=== PATIENT | female | born 1970 ===

== ENCOUNTER 2017-03-03 09:23 | Day surgery (SDC) | payer OTHER ==
--- NOTE | 2017-03-03 11:32 | CP.SDSHP ---
Same Day Surgery H & P - History Proposed Procedure: EGD Pre-Op Diagnosis: SEE NOTES - Previous Medical/Surgical History Endocrine/Metabolic: Thyroid Disease Neuro: Backaches Pain: 4.Moderate Pain - Allergies Allergies: Allergies No Known Allergies Allergy (Verified 03/03/17 09:51) - Physical Exam General Appearance: N Vital Signs: Vital Signs 03/03/17 10:30 Temperature 97.6 F Pulse Rate 76 Respiratory 20 Rate Blood Pressure 126/83 O2 Sat by Pulse 100 Oximetry Mental Status: Alert & Oriented x3 Neuro: WNL Heart: WNL Lungs: WNL - {Optional Preform as Required} Breast: WNL Abdomen: Other Rectal: Other Integument: WNL : WNL Ortho: Other ENT: WNL - Impression Pt. Evaluated Today:Candidate for Anesthesia & Procedure: Yes - Date & Time Time: 11:31 Short Stay Discharge - Short Stay Discharge Admitting Diagnosis/Reason for Visit: DYSPEPSIA Disposition: HOME/ ROUTINE
[2017-03-03] MEDS ORDERED: Propofol 10 mg/ml Inj (20 ML) ONE (11:36)
[2017-03-03] MEDS ORDERED: Lactated Ringer's 500 ML IV ONE ×3 (11:37)
[2017-03-03 12:07] VITALS: TEMP 98.4
[2017-03-03] MEDS ORDERED: Pantoprazole 40 mg EC Tab PO ONE (12:10)
[2017-03-03] MEDS ORDERED: Belladonna-Phenobarbital PO ONE (12:10)
[2017-03-03 13:27] VITALS: O2SAT 100
[2017-03-03 13:28] VITALS: BP 120/70; PULSE 60; RESP 20
== END 2017-03-03 15:20 | disposition home or self-care (01) ==
LOC: C.ENDO 09:23
PROVIDERS: ATTEND Specialist
DX: K29.50 Unspecified chronic gastritis without bleeding (principal); K29.80 Duodenitis without bleeding; K44.9 Diaphragmatic hernia without obstruction or gangrene; K20.9 Esophagitis, unspecified
CPT/HCPCS: 43239; 84703; 88305; 88342; J2001; J2704; J3010; J7120

== ENCOUNTER 2017-03-10 06:43 | Day surgery (SDC) | payer OTHER ==
[2017-03-10 06:54] VITALS: BMI 26.2
[2017-03-10] MEDS ORDERED: Propofol 10 mg/ml Inj (20 ML) ONE ×2 (07:58→08:11)
--- NOTE | 2017-03-10 08:04 | CP.SDSHP ---
Same Day Surgery H & P - History Proposed Procedure: COLONSCOPY Pre-Op Diagnosis: SEE NOTES - Previous Medical/Surgical History Neuro: Other Misc: Other Pain: 4.Moderate Pain - Allergies Allergies: Allergies No Known Allergies Allergy (Verified 03/03/17 09:51) - Physical Exam General Appearance: N Vital Signs: Vital Signs 03/10/17 06:52 Temperature 97 F L Pulse Rate 77 Respiratory 19 Rate Blood Pressure 106/73 O2 Sat by Pulse 97 Oximetry Mental Status: Alert & Oriented x3 Neuro: WNL Heart: WNL Lungs: WNL GI: Other - {Optional Preform as Required} Breast: WNL Abdomen: Other Rectal: Other Integument: WNL : WNL Ortho: Other ENT: WNL - Impression Pt. Evaluated Today:Candidate for Anesthesia & Procedure: Yes - Date & Time Time: 08:04 Short Stay Discharge - Short Stay Discharge Admitting Diagnosis/Reason for Visit: DIARRHEA Disposition: HOME/ ROUTINE
[2017-03-10 08:34] VITALS: TEMP 96.8
[2017-03-10] MEDS ORDERED: Belladonna-Phenobarbital PO ONE (08:45)
[2017-03-10 10:28] VITALS: O2SAT 99
[2017-03-10 10:31] VITALS: BP 107/81; PULSE 62; RESP 18
== END 2017-03-10 09:23 | disposition home or self-care (01) ==
LOC: C.ENDO 06:43
PROVIDERS: ATTEND Specialist
DX: R19.7 Diarrhea, unspecified (principal); K58.0 Irritable bowel syndrome with diarrhea; K64.8 Other hemorrhoids
CPT/HCPCS: 45380; 84703; 88305; J2704

== ENCOUNTER 2017-04-22 06:49 | Inpatient (IN) | payer OTHER ==
[2017-04-08 10:09] VITALS: BMI 26.5
[2017-04-22] MEDS ORDERED: Remifentanil 1 mg/3 ml Vial IV ONE (07:48)
[2017-04-22] MEDS ORDERED: Propofol 10 mg/ml 1,000 MG/100 ML VIAL ONE ×2 (07:48)
[2017-04-22] MEDS ORDERED: Thrombin Topical 5,000 IU Spray Kit ONE (07:51)
[2017-04-22] MEDS ORDERED: Bupivacaine-Epi 0.25%-1:200,000 PF Inj ONE (07:51)
[2017-04-22] MEDS ORDERED: Lidocaine 1% Inj (20ml) ONE (07:51)
[2017-04-22] MEDS ORDERED: Midazolam 2 MG/2 ML VIAL ONE (07:51)
[2017-04-22] MEDS ORDERED: Absorbable Gelatin Sponge Size 100 ONE (07:51)
[2017-04-22] MEDS ORDERED: ceFAZolin IV 2 gm in Dextrose 1 GM/50 ML BAG IVPB ONE (07:52)
[2017-04-22] MEDS ORDERED: Lactated Ringer's 1,000 ML IV ONE ×3 (07:55→12:53)
[2017-04-22] MEDS ORDERED: ceFAZolin IV 1 gm in Dextrose 2 GM/100 ML BAG IVPB ONE (12:31)
[2017-04-22] MEDS ORDERED: Neostigmine Methylsulfate 3mg/3ml Syringe IV ONE (13:05)
--- NOTE | 2017-04-22 13:24 | PCM.SURG1 ---
Surgeon's Initial Post Op Note - Surgeon's Notes Surgeon: [employer]: Gonzalo PGY3, Nate LAWLER Type of Anesthesia: General Endo, Local Pre-Operative Diagnosis: Graves disease, R neck scar Operative Findings: large hypervascular thyroid Post-Operative Diagnosis: Same Operation Performed: Total thyroidectomy and revision of R neck scar Specimen/Specimens Removed: thyroid, scar Estimated Blood Loss: EBL {In ML}: 50 Blood Products Given: N/A Drains Used: Abraham Post-Op Condition: Good Date of Surgery/Procedure: 04/22/17 Time of Surgery/Procedure: 13:23
[2017-04-22] MEDS: HYDROmorphone 0.5 mg/0.5 ml ISec IVP PRN ×6 (13:40→21:35)
[2017-04-22] MEDS ORDERED: ACETAMINOPHEN IV ONE (14:15)
[2017-04-22] MEDS ORDERED: Acetaminophen IV 1,000 MG in Premixed IV 1 EA IV STA (14:16)
[2017-04-22] MEDS: Sodium Chloride 0.9% 1,000 ML IV SCH ×2 (15:40→16:40)
[2017-04-22] MEDS: Oxycodone/Acetaminophen 5/325 mg Tab PO PRN (19:32)
[2017-04-22] MEDS: Benzocaine/Menthol (Cepacol) Lozenge MT PRN (21:35)
[2017-04-23] MEDS: Oxycodone/Acetaminophen 5/325 mg Tab PO PRN ×4 (00:10→17:13)
[2017-04-23] MEDS: HYDROmorphone 0.5 mg/0.5 ml ISec IVP PRN ×4 (01:40→13:42)
[2017-04-23] MEDS: Benzocaine/Menthol (Cepacol) Lozenge MT PRN ×2 (04:36→09:57)
[2017-04-23] MEDS: Sodium Chloride 0.9% 1,000 ML IV SCH (05:30)
[2017-04-23 08:16] LABS: HEMATOCRIT 31.8 % (34.0-47.0); MEAN CELL VOLUME 100.1 fL (81.0-99.0); MEAN CORPUSCULAR HEMOGLOBIN 35.2 pg (27.0-31.0); MEAN CORPUSCULAR HGB CONC 35.1 g/dL (33.0-37.0); MEAN PLATELET VOLUME 7.2 fL (7.2-11.7); RED CELL DISTRIBUTION WIDTH 12.4 % (11.5-14.5); WHITE BLOOD COUNT 6.4 K/uL (4.8-10.8)
--- NOTE | 2017-04-23 12:26 | CP.PCM.PN ---
<Quentin Gama - Last Filed: 04/23/17 12:23> Subjective - Date & Time of Evaluation Date of Evaluation: 04/23/17 Time of Evaluation: 12:23 - Subjective Subjective: General Surgery Note for Dr. Shabazz Patient seen and examined today. Drain fell out overnight. Patient s/p total thyroidectomy POD #1. Patient reports some pain at incision site but controlled with meds. Patient has no other complaints. She is tolerating diet. Objective - Vital Signs/Intake and Output Vital Signs (last 24 hours): Temp Pulse Resp BP Pulse Ox 98.2 F 64 17 138/92 H 99 04/23/17 07:00 04/23/17 07:00 04/23/17 07:00 04/23/17 07:00 04/23/17 07:00 Intake and Output: 04/23/17 04/23/17 06:59 18:59 Output Total 6 Balance -6 - Medications Medications: Current Medications Benzocaine/Menthol (Cepacol Sore Throat) 1 sophia MT PRN PRN PRN Reason: Sore Throat Last Admin: 04/23/17 09:57 Dose: 1 sophia Hydromorphone HCl (Dilaudid) 0.5 mg IVP Q4H PRN PRN Reason: Pain, severe (8-10) Last Admin: 04/23/17 09:40 Dose: 0.5 mg Sodium Chloride (Sodium Chloride 0.9%) 1,000 mls @ 75 mls/hr IV .[id number] ALEXX Last Admin: 04/23/17 05:30 Dose: 75 mls/hr Ondansetron HCl (Zofran Inj) 4 mg IVP Q4 PRN PRN Reason: Nausea/Vomiting Oxycodone/Acetaminophen (Percocet 5/325 Mg Tab) 1 tab PO Q4H PRN PRN Reason: Pain, moderate (4-7) Stop: 04/25/17 13:29 Last Admin: 04/23/17 12:10 Dose: 1 tab - Labs Labs: 04/23/17 08:07 - Head Exam Head Exam: ATRAUMATIC, NORMOCEPHALIC - Eye Exam Eye Exam: Normal appearance - ENT Exam ENT Exam: Mucous Membranes Moist - Neck Exam Additional comments: dressing on anterior neck - Respiratory Exam Respiratory Exam: NORMAL BREATHING PATTERN - Cardiovascular Exam Cardiovascular Exam: REGULAR RHYTHM - GI/Abdominal Exam GI & Abdominal Exam: Soft. absent: Tenderness - Extremities Exam Extremities Exam: Normal Capillary Refill - Neurological Exam Neurological Exam: Alert, Awake, CN II-XII Intact, Oriented x3 - Psychiatric Exam Psychiatric exam: Normal Affect, Normal Mood - Skin Skin Exam: Dry, Normal Color, Warm Assessment and Plan - Assessment and Plan (Free Text) Plan: 47 F s/p total thyroidectomy POD#1 for Graves disease -OOB, Ambulation, and IS -Analgesics PRN -Continue IV fluids -Will DW DR. Mele Gama PGY1 <Don Shabazz - Last Filed: 04/23/17 21:13> Objective - Vital Signs/Intake and Output Vital Signs (last 24 hours): Temp Pulse Resp BP Pulse Ox 98.2 F 78 20 138/90 96 04/23/17 17:18 04/23/17 17:18 04/23/17 17:18 04/23/17 17:18 04/23/17 17:18 Intake and Output: 04/23/17 04/24/17 18:59 06:59 Intake Total 280 Balance 280 - Medications Medications: Current Medications Benzocaine/Menthol (Cepacol Sore Throat) 1 sophia MT PRN PRN PRN Reason: Sore Throat Last Admin: 04/23/17 09:57 Dose: 1 sophia Calcium Gluconate (Calcium Gluconate) 500 mg PO DAILY ALEXX Hydromorphone HCl (Dilaudid) 0.5 mg IVP Q4H PRN PRN Reason: Pain, severe (8-10) Last Admin: 04/23/17 13:42 Dose: 0.5 mg Ondansetron HCl (Zofran Inj) 4 mg IVP Q4 PRN PRN Reason: Nausea/Vomiting Oxycodone/Acetaminophen (Percocet 5/325 Mg Tab) 1 tab PO Q4H PRN PRN Reason: Pain, moderate (4-7) Stop: 04/25/17 13:29 Last Admin: 04/23/17 17:13 Dose: 1 tab - Labs Labs: 04/23/17 08:07 04/23/17 14:45 Attending/Attestation - Attestation I have personally seen and examined this patient.: Yes I have fully participated in the care of the patient.: Yes I have reviewed all pertinent clinical information, including history, physical exam and plan: Yes Notes (Text): 04/23/17 21:12 Pt was seen and examined at bedside Agree with above note and assessment Drain minimal, Drain fell out today morning Calciums supplement PO analgesics Repeat Calcium in am Plan d.w pt in detail
[2017-04-23 15:05] LABS: CHLORIDE 100 mmol/L (98-107); SODIUM 137 mmol/L (132-148)
[2017-04-23 15:07] LABS: ALB/GLOB RATIO 1.1 (1.0-2.1); ALKALINE PHOSPHATASE 75 U/L (38-126); AST/SGOT 28 U/L (14-36); BILIRUBIN,TOTAL 0.9 mg/dL (0.2-1.3); CARBON DIOXIDE 26 mmol/L (22-30); GFR AFRICAN-AMERICAN > 60; TOTAL PROTEIN 8.2 g/dL (6.3-8.3)
[2017-04-23 15:08] LABS: ALT/SGPT 33 U/L (9-52); BLOOD UREA NITROGEN 3 mg/dL (7-17); CALCIUM 6.4 mg/dl (8.6-10.4); GLUCOSE,RANDOM 94 mg/dL (65-105); MAGNESIUM 1.5 mg/dL (1.6-2.3)
[2017-04-23 15:10] LABS: POTASSIUM 3.3 mmol/L (3.6-5.2)
[2017-04-23] MEDS ORDERED: Calcium Gluconate 4.65 mEq/10 ml Inj IVP ONE (17:30)
[2017-04-24] MEDS: Oxycodone/Acetaminophen 5/325 mg Tab PO PRN ×3 (03:04→11:31)
--- NOTE | 2017-04-24 03:19 | OP ---
PROCEDURE DATE: 04/22/2017 PREOPERATIVE DIAGNOSES: 1. Graves' disease with controlled thyrotoxicosis. 2. Thyromegaly. 3. Old neck scar. POSTOPERATIVE DIAGNOSES: 1. Graves' disease with controlled thyrotoxicosis. 2. Thyromegaly. 3. Old neck scar. PROCEDURES: 1. Total thyroidectomy. 2. Intraoperative nerve monitoring. 3. Revision of right lateral neck scar. SURGEON: Dr. Shabazz. DIRECTOR OF CONSULTING SERVICES: Mahendra Villafuerte and MELLISSA Desouza. TYPE OF ANESTHESIA: General endotracheal tube anesthesia. ESTIMATED BLOOD LOSS: Around 50 mL. DRAINS: 15-[place] blood drain was placed. COMPLICATIONS: None. PATHOLOGY: 1. Thyroid was sent to the pathology. 2. Revised scar of the right lateral neck. INTRAOPERATIVE FINDINGS: The patient had thyromegaly and intraoperative bilateral recurrent laryngeal nerve was intact and confirmed with nerve monitoring. DESCRIPTION OF PROCEDURE: On intraoperative steps, this 47-year-old female who had thyrotoxicosis and after controlling thyrotoxicosis medically, the patient was consented for total thyroidectomy for Graves' disease and the patient was also consented for the revision of the right lateral neck scar. The patient was brought to the OR, placed supine upon operating table. After induction of the anesthesia, neck and upper chest was prepped and draped in the usual sterile fashion. The skin crease incision was made two finger breadth above the sternal notch from one side of SCM to other side side and after incising skin, subcutaneous tissue, and platysma, upper and lower flap was created and the strap muscles were divided in the midline from the cricothyroid up to the sternum and both strap muscles were divided and thyroid on the left side was visualized. The upper pole of the thyroid was ligated in three different pedicles and now laterally the middle thyroid vein was also identified and ligated and the thyroid was mobilized medially and inferior thyroid artery was identified. The superior parathyroid was dissected free and now the inferior parathyroid was also identified and it was dissected free. The recurrent laryngeal nerve on the left side was identified and tested with the monitor and now the inferior thyroid vein was ligated and inferior thyroid artery was also ligated and recurrent laryngeal nerve was dissected free from the thyroid and the dissection was carried down up to the tubercle of Zuckerkandl and thyroid was dissected free from the underlying trachea and afterward, the similar dissection was done on the right side and the superior thyroid pedicle was ligated with three different pedicles and the middle thyroid vein was also ligated and the thyroid was mobilized medially. The inferior thyroid artery as well as inferior thyroid vein were identified and the recurrent laryngeal nerve was also identified and the middle thyroid artery and middle thyroid vein were ligated and divided and recurrent laryngeal nerve was dissected free up to the tubercle of Zuckerkandl and the thyroid was dissected free from the underlying trachea. The right superior and inferior parathyroid was also identified and it was and after that the pyramidal lobe was also dissected and it was sent to the table for the pathology. After completion of the dissection, both nerves were tested and it were intact and there was a good action potential identified and after a proper hemostasis, the strap muscles were sutured back with 0 Vicryl interrupted sutures and platysma with 2-0 Vicryl, skin with 4-0 Monocryl, and a drain was placed. Now, the right lateral neck scar was revised and the scar was sent to the table for the pathology and the wound was closed in two layers, the subcutaneous with 2-0 Vicryl, skin with 4-0 Vicryl, and from the similar incision the drain was taken out and dry sterile dressing was applied. Postoperatively, the patient had a normal voice. The patient tolerated the procedure well. Count of the instruments and gauze was correct. There was no apparent complication. Don Shabazz MD MAS[facility]
[2017-04-24 08:35] VITALS: BP 143/99; PULSE 85; RESP 18; TEMP 98.2; O2SAT 96
[2017-04-24 10:11] LABS: MEAN CELL VOLUME 99.7 fL (81.0-99.0); MEAN CORPUSCULAR HEMOGLOBIN 34.7 pg (27.0-31.0); MEAN CORPUSCULAR HGB CONC 34.8 g/dL (33.0-37.0); MEAN PLATELET VOLUME 7.1 fL (7.2-11.7); RED CELL DISTRIBUTION WIDTH 12.1 % (11.5-14.5); WHITE BLOOD COUNT 7.2 K/uL (4.8-10.8)
[2017-04-24 10:22] LABS: CHLORIDE 99 mmol/L (98-107); POTASSIUM 3.3 mmol/L (3.6-5.2); SODIUM 137 mmol/L (132-148)
[2017-04-24 10:25] LABS: BLOOD UREA NITROGEN 6 mg/dL (7-17); CALCIUM 6.8 mg/dl (8.6-10.4); CARBON DIOXIDE 24 mmol/L (22-30); GFR AFRICAN-AMERICAN > 60; GLUCOSE,RANDOM 93 mg/dL (65-105)
[2017-04-24] MEDS ORDERED: Potassium Chloride 20 mEq ER Tab PO ONE (11:26)
[2017-04-24] MEDS ORDERED: Magnesium Sulfate 1 gm in D5W 1 GM/100 ML BAG IVPB ONE (12:00)
--- NOTE | 2017-04-24 13:49 | CP.PCM.DIS ---
Provider - Provider Date of Admission: 04/22/17 13:25 Attending physician: Don Shabazz MD Time Spent in preparation of Discharge (in minutes): 30 Diagnosis - Discharge Diagnosis (1) Graves disease Status: Acute (2) S/P thyroidectomy Status: Acute Hospital Course - Lab Results Lab Results: Most Recent Lab Values WBC 7.2 K/uL (4.8-10.8) 04/24/17 09:57 RBC 3.51 Mil/uL (3.80-5.20) L 04/24/17 09:57 Hgb 12.2 g/dL (11.0-16.0) 04/24/17 09:57 Hct 35.0 % (34.0-47.0) 04/24/17 09:57 MCV 99.7 fL (81.0-99.0) H 04/24/17 09:57 MCH 34.7 pg (27.0-31.0) H 04/24/17 09:57 MCHC 34.8 g/dL (33.0-37.0) 04/24/17 09:57 RDW 12.1 % (11.5-14.5) 04/24/17 09:57 Plt Count 311 K/uL (130-400) 04/24/17 09:57 MPV 7.1 fL (7.2-11.7) L 04/24/17 09:57 Sodium 137 mmol/L (132-148) 04/24/17 09:57 Potassium 3.3 mmol/L (3.6-5.2) L 04/24/17 09:57 Chloride 99 mmol/L (98-107) 04/24/17 09:57 Carbon Dioxide 24 mmol/L (22-30) 04/24/17 09:57 Anion Gap 17 (10-20) 04/24/17 09:57 BUN 6 mg/dL (7-17) L 04/24/17 09:57 Creatinine 0.5 mg/dL (0.7-1.2) L 04/24/17 09:57 Est GFR ( Amer) > 60 04/24/17 09:57 Est GFR (Non-Af Amer) > 60 04/24/17 09:57 Random Glucose 93 mg/dL (65-105) 04/24/17 09:57 Calcium 6.8 mg/dl (8.6-10.4) L 04/24/17 09:57 Magnesium 1.5 mg/dL (1.6-2.3) L 04/23/17 14:45 Total Bilirubin 0.9 mg/dL (0.2-1.3) 04/23/17 14:45 AST 28 U/L (14-36) 04/23/17 14:45 ALT 33 U/L (9-52) 04/23/17 14:45 Alkaline Phosphatase 75 U/L (38-126) 04/23/17 14:45 Total Protein 8.2 g/dL (6.3-8.3) 04/23/17 14:45 Albumin 4.3 g/dL (3.5-5.0) 04/23/17 14:45 Globulin 3.9 gm/dL (2.2-3.9) 04/23/17 14:45 Albumin/Globulin Ratio 1.1 (1.0-2.1) 04/23/17 14:45 - Hospital Course Hospital Course: 47F w. hx of Grave's diseases presented to hospital on 04/22 for total thyroidectomy. Post-operatively she did experience some electrolyte abnormalities which were corrected as needed. Otherwise she did well and has no complaints and is clear for D/C. - Date & Time of H&P Date of H&P: 04/22/17 Discharge Exam - Head Exam Head Exam: ATRAUMATIC, NORMOCEPHALIC - Eye Exam Eye Exam: EOMI - ENT Exam ENT Exam: Mucous Membranes Moist - Neck Exam Neck exam: Full Rom Additional comments: incision C/D/I - Respiratory Exam Respiratory Exam: NORMAL BREATHING PATTERN. absent: Accessory Muscle Use, Respiratory Distress - GI/Abdominal Exam GI & Abdominal Exam: Soft. absent: Distended, Firm, Guarding, Rigid - Neurological Exam Neurological exam: Alert, Oriented x3 - Psychiatric Exam Psychiatric exam: Normal Affect, Normal Mood - Skin Skin Exam: Dry, Warm Discharge Plan - Discharge Medications Prescriptions: Calcium Carbonate/Vitamin D3 [Calcium 500-Vit D3 600 Caplet] 1 each PO TID #60 tablet - Follow Up Plan Condition: GOOD Disposition: HOME/ ROUTINE Patient education suggested?: Yes Instructions: Calcium Supplement (By mouth), Pain Management After Surgery (DC) , Total Thyroidectomy (DC) Additional Instructions: See Dr. Shabazz in office on Thursday. Pt may sponge bathe but do not shower Do not soak incisions - no pools, tubs, baths Pt may take over the counter Tylenol/Advil/Motrin for pain Take all medication as prescribed Stop taking Methimazole Return to the ED if difficulty breathing, hoarseness, fever >100.4, pain, redness, swelling of incision Referrals: Don Shabazz MD [Staff Provider] -
[2017-04-24] MEDS: Benzocaine/Menthol (Cepacol) Lozenge MT PRN (14:34)
== END 2017-04-24 15:30 | disposition home or self-care (01) | DRG 287 ==
LOC: C.SDS 06:49 → C.9S 13:25 → C.6T 17:47
PROVIDERS: ADMIT Surgery Surgical Critical Care; ATTEND Surgery Surgical Critical Care
PROC: 0GTK0ZZ Resection of Thyroid Gland, Open Approach (ICD-10-PCS; principal; 2017-04-23)
PROC: 0HB4XZZ Excision of Neck Skin, External Approach (ICD-10-PCS; 2017-04-23)
DX: E05.00 Thyrotoxicosis with diffuse goiter without thyrotoxic crisis or storm (principal); E01.0 Iodine-deficiency related diffuse (endemic) goiter; L90.5 Scar conditions and fibrosis of skin

== ENCOUNTER 2018-01-17 16:02 | Inpatient (IN) | payer OTHER ==
[2018-01-17 16:03] VITALS: BMI 26.5
--- NOTE | 2018-01-17 16:50 | C.PDOC ---
History Of Present Illness 47 year old female with history of thyroidectomy presents to the ED complaining of syncope, palpitations, and subjective fever for one week. Patient attributes the symptoms to her recent thyroidectomy. She denies any cough, pain, or any other medical complaints. Time Seen by Provider: 01/17/18 16:08 Chief Complaint (Nursing): Dizziness/Lightheaded History Per: Patient History/Exam Limitations: no limitations Onset/Duration Of Symptoms: Days Current Symptoms Are (Timing): Still Present Past Medical History Reviewed: Historical Data, Nursing Documentation, Vital Signs Vital Signs: Last Vital Signs Temp 98.1 F 01/18/18 16:11 Pulse 69 01/18/18 20:29 Resp 20 01/18/18 16:11 BP 119/84 01/18/18 16:11 Pulse Ox 97 01/18/18 16:11 - Medical History PMH: Anxiety, Gall Bladder Disease, Graves' Disease, Hyperthyroidism Denies: Chronic Kidney Disease Surgical History: Back Surgery, Cholecystectomy, Endoscopy Other Surgeries: thyroidectomy - [facility] Procedures EXCISION OF NECK SKIN, EXTERNAL APPROACH (04/22/17) RESECTION OF THYROID GLAND, OPEN APPROACH (04/22/17) Family History: States: No Known Family Hx - Social History Hx Alcohol Use: Yes Hx Substance Use: No - Immunization History Hx Tetanus Toxoid Vaccination: No Hx Influenza Vaccination: No Hx Pneumococcal Vaccination: No Review Of Systems Except As Marked, All Systems Reviewed And Found Negative. Constitutional: Positive for: Fever Cardiovascular: Positive for: Palpitations Respiratory: Negative for: Cough, Shortness of Breath Neurological: Positive for: Dizziness Physical Exam - Physical Exam Appears: Non-toxic, Other (Anxious appearance ) Skin: Normal Color, Warm, Dry Head: Atraumatic, Normacephalic Eye(s): bilateral: Normal Inspection Oral Mucosa: Moist Neck: Normal ROM Chest: Symmetrical Cardiovascular: Rhythm Regular, No Murmur Respiratory: Normal Breath Sounds, No Rales, No Rhonchi, No Wheezing Extremity: Normal ROM Neurological/Psych: Oriented x3, Normal Speech Gait: Steady ED Course And Treatment - Laboratory Results Result Diagrams: 01/18/18 02:27 01/18/18 02:27 ECG: Interpreted By Me, Viewed By Me ECG Rhythm: Sinus Rhythm ECG Interpretation: Normal Rate From EC O2 Sat by Pulse Oximetry: 97 (RA) Pulse Ox Interpretation: Normal - Other Rad CXR X-Ray: Viewed By Me, Read By Radiologist Interpretation: Accession No. : [id number]. Patient Name / ID : UMA HUBBARD / [id number]. Exam Date : 01/17/2018 16:38:04 ( Approved ). Study Comment : Sex / Age : F / 47Y. Creator : Hedy Carrera Dictator : Account Development Specialist : Screedman : Louis Mora MD. Approver2 : Report Date : 02/2018 16:44:07. My Comment : . PROCEDURE: CHEST RADIOGRAPH, 1 VIEW. HISTORY: chest pain. COMPARISON: Comparison chest 04/08/2017. FINDINGS: LUNGS: Clear. PLEURA: No pneumothorax or pleural fluid seen. CARDIOVASCULAR : Normal. OSSEOUS STRUCTURES: No significant abnormalities. VISUALIZED UPPER ABDOMEN: Normal. OTHER FINDINGS: Apparent bilateral breast implants. Clinical correlation with history recommended. IMPRESSION: No active disease. - CT Scan/US CT Head Other Rad Studies (CT/US): Read By Radiologist, Radiology Report Reviewed CT/US Interpretation: Accession No. : [id number]. Patient Name / ID : UMA HUBBARD / [id number]. Exam Date : 01/17/2018 17:25:08 ( Approved ). Study Comment : Sex / Age : F / 47Y. Creator : Fern Mera. Dictator : Account Development Specialist : Screedman : Louis Mora MD. Approver2 : Report Date : 01/17/2018 17:25:04. My Comment : . PROCEDURE: CT HEAD WITHOUT CONTRAST. HISTORY: Syncope. COMPARISON: None available. TECHNIQUE: Axial computed tomography images were obtained through the head/brain without intravenous contrast. Radiation dose: Total exam DLP = Miranda 3.35 mGy-cm. This CT exam was performed using one or more of the following dose reduction techniques: Automated exposure control, adjustment of the mA and/or kV according to patient size, and/or use of iterative reconstruction technique. Note that the examination is slightly limited due to significant streak and beam hardening artifact arising from multiple left-sided ear rings partially obscuring the skullbase and inferior. FINDINGS: HEMORRHAGE: No acute parenchymal, subarachnoid or extra-axial hemorrhage. BRAIN: Note that the possibility of a small hyperacute infarct cannot be completely excluded. Mild generalized volume loss. . VENTRICLES: No obstructive hydrocephalus. CALVARIUM: Calvarium intact. Old fracture deformity right lamina papyracea with herniation of orbital fat through the defect occupying a few right-sided collapsed ethmoid air cells. . PARANASAL SINUSES: Unremarkable as visualized. No significant inflammatory changes. MASTOID AIR CELLS: Unremarkable as visualized. No inflammatory changes. OTHER FINDINGS: None. IMPRESSION: Limited study due to significant streak and beam hardening artifact arising from multiple left-sided ear rings partially obscuring brain and bone detail. No acute intracranial hemorrhage or infarct. Mild generalized volume loss. CT abd/pelvis Other Rad Studies (CT/US): Read By Radiologist, Radiology Report Reviewed CT/US Interpretation: EXAM: CT Abdomen and Pelvis With Intravenous Contrast. EXAM DATE/TIME: 01/17/2018 5:57 PM. CLINICAL HISTORY: 47 years old, female; Pain; Abdominal pain; Additional info: Lower abd pain. TECHNIQUE: Axial computed tomography images of the abdomen and pelvis with intravenous contrast. All CT scans at this facility use at least one of these dose optimization techniques: automated. exposure control; mA and/or kV adjustment per patient size (includes targeted exams where dose is. matched to clinical indication); or iterative reconstruction. CONTRAST: 100 ml of [id number] administered intravenously. COMPARISON: US - ABDOMEN COMPLETE 2018-01-17 20:33. FINDINGS: Lower thorax: Small hiatal hernia. ABDOMEN: Liver: Normal. No mass. Gallbladder and bile ducts: Cholecystectomy. Pancreas: Normal. No ductal dilation. Spleen: Normal. No splenomegaly. Adrenals: Normal. No mass. Kidneys and ureters: Normal. No hydronephrosis. Stomach and bowel: Diverticulosis. Appendix: No evidence of appendicitis. STEVIE EATON | Preliminary Radiology Report. CONFIDENTIALITY STATEMENT. This report is intended only for the use of the referring physician, and only in accordance with law, If you received this in error, call [phone]. Page 2 of 2. PELVIS: Bladder: Unremarkable as visualized. Reproductive: There is a 5.9 x 4.7 cm cystic density identified on the right adnexa which is. probably ovarian, suprapelvic sonogram in further evaluation. There may be free fluid in the pelvis. versus a density off the posterior aspect of the uterus. Sonogram may be helpful here as well. ABDOMEN and PELVIS: Intraperitoneal space: See Reproductive Finding. Bones/joints: Degenerative disc disease in the lower lumbar spine. Soft tissues: Unremarkable. Vasculature: Normal. No abdominal aortic aneurysm. Lymph nodes: Normal. No enlarged lymph nodes. IMPRESSION: There is a 5.9 x 4.7 cm cystic density identified on the right adnexa which is probably ovarian,. suprapelvic sonogram in further evaluation. There may be free fluid in the pelvis versus a density off. the posterior aspect of the uterus. Sonogram may be helpful here as well. Thank you for allowing us to participate in the care of your patient. Dictated and Authenticated by: Jeevan Lindo MD. 01/17/2018 9:53 PM Eastern Time ([place] & [place]) Abdominal US Other Rad Studies (CT/US): Read By Radiologist, Radiology Report Reviewed CT/US Interpretation: EXAM: US Abdomen Complete. EXAM DATE/TIME: Exam ordered 01/17/2018 7:05 PM. CLINICAL HISTORY: 47 years old, female; Signs and symptoms; Other: High t bili; Prior surgery; Surgery date: 6+ months;. Surgery type: Gb removed; Additional info: High t. Josiah. TECHNIQUE: Real-time ultrasound of the abdomen (complete) with image documentation. COMPARISON: No relevant prior studies available. FINDINGS: Liver: The liver measures 15.6 cm in craniocaudal span. Phasic flow is noted within the right hepatic. vein. Gallbladder: The gallbladder is not seen as a separate structure. Common bile duct: The common bile duct measures 0.65 cm. No stones. No dilation. Pancreas: The pancreatic head and tail are not well seen due to bowel gas. The neck and body of. the pancreas appear normal. Kidneys: The right kidney measures 9.8 x 4.8 x 4.8 cm. The left kidney measures 10.9 x 5.5 x 4.1. cm. No stones. No hydronephrosis. Spleen: The spleen measures 10.5 cm in craniocaudal span. Aorta: Unremarkable. No aneurysm. Inferior vena cava: Unremarkable. Free fluid : There is normal blood flow direction in the main portal vein. IMPRESSION: 1. The pancreatic head and tail are not well seen. The neck and body the pancreas appear normal. 2. The gallbladder is absent. STEVIE EATON | Preliminary Radiology Report. CONFIDENTIALITY STATEMENT. This report is intended only for the use of the referring physician, and only in accordance with law, If you received this in error, call [phone]. Page 2 of 2. 3. Bile duct is mildly prominent 0.65 cm. This may be related to previous cholecystectomy. Clinical. correlation needed. Thank you for allowing us to participate in the care of your patient. Dictated and Authenticated by: Kelle Brunson MD. 01/17/2018 9:23 PM Eastern Time ([place] & [place]) Transvaginal US Other Rad Studies (CT/US): Read By Radiologist, Radiology Report Reviewed CT/US Interpretation: EXAM: US Pelvis, Transvaginal. EXAM DATE/TIME: Exam ordered 01/17/2018 9:56 PM. CLINICAL HISTORY: 47 years old, female; Pain; Pelvic pain; Additional info: Right sided cyst. TECHNIQUE: Real-time transvaginal pelvic ultrasound (complete) with image documentation. Transvaginal. imaging was used for better evaluation of the endometrium and adnexa. COMPARISON: CT - ABD PELVIS IV CONTRAST ONLY 2018-01-17 21:15. FINDINGS: Uterus/cervix: Anteverted uterus is identified with apparent fibroids the larger measuring 2 x 1.8 x. 2.2 cm. Normal endometrial stripe thickness. Right ovary: There is a simple appearing right ovarian cyst measuring 6.2 x 4.6 x 4.7 cm and which. accounts for the abnormality on the CT scan. Normal blood flow. Left ovary: Unremarkable. No mass. Normal blood flow. Other findings: There is a density in the cul-de-sac measuring 4.5 x 2.5 x 3.6 cm which is. heterogeneous. This may represent a chronic complex collection with heterogeneity or possibly. exophytic gynecologic lesion. IMPRESSION: 1. There is a simple appearing right ovarian cyst measuring 6.2 x 4.6 x 4.7 cm and which accounts. for the abnormality on the CT scan. 2. Anteverted uterus is identified with apparent fibroids the larger measuring 2 x 1.8 x 2.2 cm. 3. There is a density in the cul-de-sac measuring 4.5 x 2.5 x 3.6 cm which is heterogeneous. This. may represent a chronic complex collection with heterogeneity or possibly exophytic gynecologic. lesion. STEVIE EATON | Preliminary Radiology Report. CONFIDENTIALITY STATEMENT. This report is intended only for the use of the referring physician, and only in accordance with law, If you received this in error, call [phone]. Page 2 of 2. Thank you for allowing us to participate in the care of your patient. Dictated and Authenticated by: Jeevan Lindo MD. 01/18/2018 12:08 AM Eastern Time ([place] & [place]) Medical Decision Making Medical Decision Making: palpitation/syncope -r o metabolic infectious cardiac, endocrine etiology Order: - EKG - Labs - UA - HCG - CXR - CT head Patient assessed and examined. Orders placed in for blood work. Urine collected and sent to lab for analysis. EKG obtained and reviewed - normal. Orders placed for labs including CT head and CXR pt on arrival states "i believe i am in thryoid storm". inital fever noted, labs sent. electrolytes wnl, however noted tsh 0.05. at bedside, pt now endorses previous abuse of thyroid medications to "lose weight", states a few months ago. BWPS score 25, ?impending strorm. eval by icu dr camara, not icu candidate. empiric antibiotics dosed. noted mild elevated bili. us ct added. no source of infection identified. case discussed with hospitalist. accepted to tele. Disposition - Disposition Disposition: HOSPITALIZED Disposition Time: 08:00 Condition: FAIR - Clinical Impression Clinical Impression: Thyrotoxicosis - Scribe Statement The provider has reviewed the documentation as recorded by the Scribe Kerri Gonzalez All medical record entries made by the Juan Carlosibe were at my direction and personally dictated by me. I have reviewed the chart and agree that the record accurately reflects my personal performance of the history, physical exam, medical decision making, and the department course for this patient. I have also personally directed, reviewed, and agree with the discharge instructions and disposition. Decision To Admit - Pt Status Changed To: Hospital Disposition Of: Inpatient - Admit Certification Admit to Inpatient:: After my assessment, the patient will require hospitalization for at least two midnights. This is because of the severity of symptoms shown, intensity of services needed, and/or the medical risk in this patient being treated as an outpatient. - InPatient: Physician Admission Certification: I certify that this patient requires 2 or more midnights of care for the following reason:: needs endocrine eval. - . Bed Request Type: Telemetry Admitting Physician: Sander Miller Patient Diagnosis: Thyrotoxicosis
[2018-01-17 17:30] LABS: BASO % 0.5 % (0.0-2.0); EOS # 0.1 K/uL (0.0-0.7); EOS % 0.9 % (0.0-4.0); HEMOGLOBIN 13.3 g/dL (11.0-16.0); LYMPH # 0.8 K/uL (1.0-4.3); LYMPH % 7.9 % (20.0-40.0); MEAN CELL VOLUME 98.5 fL (81.0-99.0); MEAN CORPUSCULAR HEMOGLOBIN 33.7 pg (27.0-31.0); MEAN CORPUSCULAR HGB CONC 34.2 g/dL (33.0-37.0); MEAN PLATELET VOLUME 7.2 fL (7.2-11.7); MONO # 0.5 K/uL (0.0-0.8); MONO % 4.6 % (0.0-10.0); NEUT # 8.6 K/uL (1.8-7.0); NEUT % 86.1 % (50.0-75.0); NRBC % 0.1 % (0.0-2.0); PLATELET COUNT 312 K/uL (130-400); RBC 3.95 Mil/uL (3.80-5.20); RED CELL DISTRIBUTION WIDTH 12.6 % (11.5-14.5)
[2018-01-17 17:33] LABS: SQUAMOUS EPITHIAL 1 /hpf (0-5); URINE BILIRUBIN NEGATIVE (NEGATIVE); URINE BLOOD NEGATIVE (NEGATIVE); URINE CLARITY Clear (Clear); URINE COLOR Yellow (YELLOW); URINE GLUCOSE (UA) NORMAL (Normal); URINE LEUKOCYTE ESTERASE TRACE Leu/uL (Negative); URINE PROTEIN NEGATIVE (NEGATIVE); URINE UROBILINOGEN NORMAL mg/dL (0.2-1.0)
[2018-01-17 17:34] LABS: HCG,QUALITATIVE URINE NEGATIVE (NEGATIVE)
[2018-01-17 17:41] LABS: PROTHROMBIN TIME 10.9 SECONDS (9.7-12.2)
--- NOTE | 2018-01-17 17:50 | CT ---
PROCEDURE: CT HEAD WITHOUT CONTRAST. HISTORY: Syncope COMPARISON: None available. TECHNIQUE: Axial computed tomography images were obtained through the head/brain without intravenous contrast. Radiation dose: Total exam DLP = Miranda 3.35 mGy-cm. This CT exam was performed using one or more of the following dose reduction techniques: Automated exposure control, adjustment of the mA and/or kV according to patient size, and/or use of iterative reconstruction technique. Note that the examination is slightly limited due to significant streak and beam hardening artifact arising from multiple left-sided ear rings partially obscuring the skullbase and inferior. FINDINGS: HEMORRHAGE: No acute parenchymal, subarachnoid or extra-axial hemorrhage. BRAIN: Note that the possibility of a small hyperacute infarct cannot be completely excluded. Mild generalized volume loss. . VENTRICLES: No obstructive hydrocephalus. CALVARIUM: Calvarium intact. Old fracture deformity right lamina papyracea with herniation of orbital fat through the defect occupying a few right-sided collapsed ethmoid air cells. . PARANASAL SINUSES: Unremarkable as visualized. No significant inflammatory changes. MASTOID AIR CELLS: Unremarkable as visualized. No inflammatory changes. OTHER FINDINGS: None. IMPRESSION: Limited study due to significant streak and beam hardening artifact arising from multiple left-sided ear rings partially obscuring brain and bone detail. No acute intracranial hemorrhage or infarct. Mild generalized volume loss.
[2018-01-17 17:53] LABS: CALCIUM 8.6 mg/dl (8.6-10.4); GFR AFRICAN-AMERICAN > 60; GFR NON-AFRICAN AMERICAN > 60
[2018-01-17 17:54] LABS: ALB/GLOB RATIO 1.3 (1.0-2.1); ALBUMIN 5.2 g/dL (3.5-5.0); ALT/SGPT 10 U/L (9-52); AST/SGOT 42 U/L (14-36); BLOOD UREA NITROGEN 15 mg/dL (7-17)
[2018-01-17] MEDS ORDERED: Sodium Chloride 0.9% 500 ML IV ONE (17:58)
[2018-01-17 18:00] LABS: BANDS 5 % (0-2); LARGE PLATELETS PRESENT; LYMPHOCYTE 6 % (20-40); MONOCYTE 5 % (0-10); NEUTROPHIL 84 % (50-75); PLATELET ESTIMATE NORMAL (NORMAL); TOTAL CELLS COUNTED 100
--- NOTE | 2018-01-17 18:01 | RAD ---
PROCEDURE: CHEST RADIOGRAPH, 1 VIEW HISTORY: chest pain COMPARISON: Comparison chest 04/08/2017 FINDINGS: LUNGS: Clear. PLEURA: No pneumothorax or pleural fluid seen. CARDIOVASCULAR: Normal. OSSEOUS STRUCTURES: No significant abnormalities. VISUALIZED UPPER ABDOMEN: Normal. OTHER FINDINGS: Apparent bilateral breast implants. Clinical correlation with history recommended. IMPRESSION: No active disease.
[2018-01-17] MEDS ORDERED: Iodixanol 320 MG/ML 100 ML BOTTLE IV ONE (18:18)
[2018-01-17] MEDS ORDERED: Piperacillin/Tazobact 3.375 gm 100 ML IVPB STA (19:30)
[2018-01-17] MEDS: Dextrose 5%/0.9% NS 1,000 ML IV SCH (19:34)
--- NOTE | 2018-01-17 19:49 | CP.PCM.CON ---
History of Present Illness - History of Present Illness History of Present Illness: 47 y/o female with pmx of graves disease, h/o thyroidectomy, h/o hypocalcemia presents to [facility] with palpitations, and syncope. PAtient provides a history of eating at "hooked" and developed nausea/vomitting and constipation/ diarrhea ("everything"). Patient denies over prescribing synthroid. Patient denies any headaches, (+)diffuse abdominal pain (+)last menstruation November 2016 Patient claims herself to be "whole" frequently comes on television for exercise. Pmx: graves disease Psurg hx: cholecystectomy SH: (+)ETOH, denies illicit drugs, female partner Review of Systems - Review of Systems All systems: reviewed and no additional remarkable complaints except Review of Systems: (+)palpitation, (+)syncope Past Patient History - Past Medical History & Family History Past Medical History?: Yes - Past Social History Smoking Status: Never Smoked - CARDIAC Hx Cardiac Disorders: No - PULMONARY Hx Respiratory Disorders: No - NEUROLOGICAL Hx Neurological Disorder: No - HEENT Hx HEENT Problems: Yes Other/Comment: thyroid nodule - RENAL Hx Chronic Kidney Disease: No - ENDOCRINE/METABOLIC Hx Hyperthyroidism: Yes - HEMATOLOGICAL/ONCOLOGICAL Hx Blood Disorders: No - INTEGUMENTARY Hx Dermatological Problems: No - MUSCULOSKELETAL/RHEUMATOLOGICAL Hx Musculoskeletal Disorders: Yes Hx Falls: No Hx Herniated Disk: Yes - GASTROINTESTINAL Hx Gall Bladder Disease: Yes - GENITOURINARY/GYNECOLOGICAL Hx Genitourinary Disorders: No - PSYCHIATRIC Hx Anxiety: Yes Hx Substance Use: No - SURGICAL HISTORY Hx Cholecystectomy: Yes - ANESTHESIA Hx Anesthesia: Yes Hx Anesthesia Reactions: No Hx Malignant Hyperthermia: No Meds Allergies/Adverse Reactions: Allergies Allergy/AdvReac Type Severity Reaction Status Date / Time No Known Allergies Allergy Verified 01/17/18 16:21 - Medications Medications: Current Medications Dextrose/Sodium Chloride (Dextrose 5%/0.9% Ns 1000 Ml) 1,000 mls @ 100 mls/hr IV .Q10H ALEXX Last Admin: 01/17/18 19:34 Dose: 100 mls/hr Piperacillin Sod/Tazobactam Sod (Zosyn 3.375 In Ns 100ml) 100 mls @ 200 mls/hr IVPB STAT STA PRN Reason: Protocol Stop: 01/17/18 19:59 Physical Exam - Head Exam Head Exam: ATRAUMATIC, NORMAL INSPECTION, NORMOCEPHALIC - Eye Exam Eye Exam: EOMI Pupil Exam: NORMAL ACCOMODATION - ENT Exam ENT Exam: Mucous Membranes Dry, Mucous Membranes Moist, Normal Exam - Neck Exam Neck exam: Positive for: Full Rom - Respiratory Exam Respiratory Exam: Clear to Auscultation Bilateral, NORMAL BREATHING PATTERN - Cardiovascular Exam Cardiovascular Exam: REGULAR RHYTHM, +S1, +S2 - GI/Abdominal Exam GI & Abdominal Exam: Normal Bowel Sounds, Soft - Extremities Exam Extremities exam: Positive for: full ROM, normal capillary refill, normal inspection - Neurological Exam Neurological exam: Alert, CN II-XII Intact, Oriented x3 Results - Vital Signs Recent Vital Signs: Last Vital Signs Temp 100.4 F H 01/17/18 17:38 Pulse 90 01/17/18 16:41 Resp 18 01/17/18 16:41 BP 112/77 01/17/18 16:41 Pulse Ox 97 01/17/18 18:36 - Labs Result Diagrams: 01/17/18 17:25 01/17/18 17:25 Labs: Laboratory Results - last 24 hr 01/17/18 01/17/18 01/17/18 17:25 17:25 17:25 WBC 10.0 D RBC 3.95 Hgb 13.3 Hct 38.9 MCV 98.5 MCH 33.7 H MCHC 34.2 RDW 12.6 Plt Count 312 MPV 7.2 Neut % (Auto) 86.1 H Lymph % (Auto) 7.9 L Cook % (Auto) 4.6 Eos % (Auto) 0.9 Baso % (Auto) 0.5 Neut # (Auto) 8.6 H Lymph # (Auto) 0.8 L Cook # (Auto) 0.5 Eos # (Auto) 0.1 Baso # (Auto) 0.0 Neutrophils % (Manual) 84 H Band Neutrophils % 5 H Lymphocytes % (Manual) 6 L Monocytes % (Manual) 5 Platelet Estimate Normal Large Platelets Present PT 10.9 INR 1.0 APTT 61 H Sodium Potassium Chloride Carbon Dioxide Anion Gap BUN Creatinine Est GFR ( Amer) Est GFR (Non-Af Amer) Random Glucose Calcium Magnesium Total Bilirubin Direct Bilirubin AST ALT Alkaline Phosphatase Troponin I Total Protein Albumin Globulin Albumin/Globulin Ratio Free T4 TSH 3rd Generation Urine Color Yellow Urine Clarity Clear Urine pH 6.0 Ur Specific Alkol 1.014 Urine Protein Negative Urine Glucose (UA) Normal Urine Ketones Negative Urine Blood Negative Urine Nitrate Negative Urine Bilirubin Negative Urine Urobilinogen Normal Ur Leukocyte Esterase Trace Urine WBC (Auto) < 1 Ur Squamous Epith Cells 1 Urine HCG, Qual Negative 01/17/18 01/17/18 01/17/18 17:25 17:25 17:25 WBC RBC Hgb Hct MCV MCH MCHC RDW Plt Count MPV Neut % (Auto) Lymph % (Auto) Cook % (Auto) Eos % (Auto) Baso % (Auto) Neut # (Auto) Lymph # (Auto) Cook # (Auto) Eos # (Auto) Baso # (Auto) Neutrophils % (Manual) Band Neutrophils % Lymphocytes % (Manual) Monocytes % (Manual) Platelet Estimate Large Platelets PT INR APTT Sodium 139 Potassium 5.1 Chloride 101 Carbon Dioxide 25 Anion Gap 19 BUN 15 Creatinine 0.7 Est GFR ( Amer) > 60 Est GFR (Non-Af Amer) > 60 Random Glucose 83 Calcium 8.6 8.7 Magnesium 1.6 Total Bilirubin 2.2 H Direct Bilirubin AST 42 H D ALT 10 Alkaline Phosphatase 69 Troponin I < 0.0120 Total Protein 9.2 H Albumin 5.2 H Globulin 4.0 H Albumin/Globulin Ratio 1.3 Free T4 1.40 TSH 3rd Generation 0.05 L Urine Color Urine Clarity Urine pH Ur Specific Alkol Urine Protein Urine Glucose (UA) Urine Ketones Urine Blood Urine Nitrate Urine Bilirubin Urine Urobilinogen Ur Leukocyte Esterase Urine WBC (Auto) Ur Squamous Epith Cells Urine HCG, Qual 01/17/18 17:25 WBC RBC Hgb Hct MCV MCH MCHC RDW Plt Count MPV Neut % (Auto) Lymph % (Auto) Cook % (Auto) Eos % (Auto) Baso % (Auto) Neut # (Auto) Lymph # (Auto) Cook # (Auto) Eos # (Auto) Baso # (Auto) Neutrophils % (Manual) Band Neutrophils % Lymphocytes % (Manual) Monocytes % (Manual) Platelet Estimate Large Platelets PT INR APTT Sodium Potassium Chloride Carbon Dioxide Anion Gap BUN Creatinine Est GFR ( Amer) Est GFR (Non-Af Amer) Random Glucose Calcium Magnesium Total Bilirubin Direct Bilirubin 1.1 H AST ALT Alkaline Phosphatase Troponin I Total Protein Albumin Globulin Albumin/Globulin Ratio Free T4 TSH 3rd Generation Urine Color Urine Clarity Urine pH Ur Specific Alkol Urine Protein Urine Glucose (UA) Urine Ketones Urine Blood Urine Nitrate Urine Bilirubin Urine Urobilinogen Ur Leukocyte Esterase Urine WBC (Auto) Ur Squamous Epith Cells Urine HCG, Qual Assessment & Plan - Assessment and Plan (Free Text) Assessment: -Palipitation: suspect related to food poisoning or MSG ingestion, will benefit from telemetry monitoring and IV hydration -Syncope: check CT head, echo and carotid dopplers -Hyperthyroidism: advised patient to decrease amount of synthroid to 100 mcg ( outpatient physician advised to go from 150 to 137, since patient did not get the lower prescription, patient continued taking 150 mcg), endocrine follow up -increase T. madeline with abdominal pain: h/o cholecystectomy, check UA abdomen, check LDH -offer HIV testing (patient verbalized agreement and provided verbal consent) -patient remains hemodynamically stable -please call ICU if patient's clinical status worsens. d/w ER physician - Date & Time Date: 01/17/18 Time: 19:58
[2018-01-17 20:03] LABS: VENOUS BLOOD GAS BASE EXCESS 1.2 mmol/L (0.0-2.0); VENOUS BLOOD GAS PCO2 41 mmHg (40-60); VENOUS BLOOD GAS PO2 39 mm/Hg (30-55); VENOUS BLOOD PH 7.41 (7.32-7.43)
[2018-01-17 20:20] LABS: LIPASE 45 U/L (23-300)
[2018-01-17 20:21] LABS: BARBITURATES, UR NEGATIVE (NEGATIVE); BENZODIAZEPINES, UR NEGATIVE (NEGATIVE); OPIATES, UR NEGATIVE (NEGATIVE); PHENCYCLIDINE, UR NEGATIVE (NEGATIVE)
[2018-01-18] MEDS ORDERED: Sodium Chloride 0.9% 1,000 ML IV SCH (01:30)
--- NOTE | 2018-01-18 01:51 | CP.PCM.HP ---
History of Present Illness - History of Present Illness History of Present Illness: HPI: Patient is a 47 year old female with a history of graves, hashimotos, thyroidectomy, and hypocalcemia, who presents to the ED with complaints of near syncope, dizziness, diaphoresis, vomiting, and diarrhea. She was at [facility] today and had a sudden onset of dizziness, diaphoresis, and felt as though she was going to faint. She then ran to the restroom, vomited and had diarrhea. She had a similar episode one week ago on Thursday, and in addition to those symptoms , had a severe migraine with photophobia and sensitivity to sound. She attributes her symptoms to possibly eat fish at a restaurant, [employer], on Thursday , and then today, eating a hamburger at [facility]. She also notes that recently, she had her labs drawn with her retail planner, who told her she needs to take levothyroxine 137mcg daily instead of 150mcg. Patient states she did not receive a new prescription for the 137mcg, so she has continued the 150mcg daily. She admits having the following symptoms intermittently for the past week - fevers, chills, nausea, vomiting (non-bloody), diarrhea (non-bloody), abdominal pain, diaphoresis, palpitations, flushing, muscle twitching, and numbness and tingling in her hands and feet. Patient denies chest pain, shortness of breath, cough, change in vision/hearing, sore throat, lower extremity pain/ swelling, dysuria, hematuria. PMD: Dr. Morgan Mapping Specialist: Dr. 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 denies recent/current drug use (has used cocaine, marijuana in the past); drinks 1-3 glasses of wine daily; travels frequently, otherwise lives with girlfriend, Micaela Ching ([phone]), in [place]. 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 Allergies: NKDA Medications: levothyroxine 150mcg po daily. Present on Admission - Present on Admission Any Indicators Present on Admission: No Review of Systems - Constitutional Constitutional: Chills, Excessive Sweating, Fever, Headache - EENT Eyes: absent: Change in Vision Ears: Dizziness - Cardiovascular Cardiovascular: Dyspnea, Palpitations, Rapid Heart Rate. absent: Chest Pain, Leg Edema - Respiratory Respiratory: Dyspnea. absent: Cough - Gastrointestinal Gastrointestinal: Diarrhea, Nausea, Vomiting. absent: Abdominal Pain, Constipation, Hematemesis, Hematochezia - Genitourinary Genitourinary: absent: Dysuria, Hematuria, Urinary Frequency - Menstruation Menstruation: absent: Normal Menses - Musculoskeletal Musculoskeletal: Numbness (hands & feet b/l), Tingling (hands & feet b/l) - Integumentary Integumentary: absent: Rash - Neurological Neurological: Dizziness, Numbness (hands & feet b/l), Headaches, Tingling ( hands & feet b/l), Other (intermittent extremity twitching) - Endocrine Endocrine: Palpitations - Hematologic/Lymphatic Hematologic: absent: Easy Bleeding, Easy Bruising Past Patient History - Past Medical History & Family History Past Medical History?: Yes - Past Social History Smoking Status: Never Smoked - CARDIAC Hx Cardiac Disorders: No - PULMONARY Hx Respiratory Disorders: No - NEUROLOGICAL Hx Neurological Disorder: No - HEENT Hx HEENT Problems: Yes Other/Comment: thyroid nodule - RENAL Hx Chronic Kidney Disease: No - ENDOCRINE/METABOLIC Hx Hyperthyroidism: Yes - HEMATOLOGICAL/ONCOLOGICAL Hx Blood Disorders: No - INTEGUMENTARY Hx Dermatological Problems: No - MUSCULOSKELETAL/RHEUMATOLOGICAL Hx Musculoskeletal Disorders: Yes Hx Falls: No Hx Herniated Disk: Yes - GASTROINTESTINAL Hx Gall Bladder Disease: Yes - GENITOURINARY/GYNECOLOGICAL Hx Genitourinary Disorders: No - PSYCHIATRIC Hx Anxiety: Yes Hx Substance Use: No - SURGICAL HISTORY Hx Cholecystectomy: Yes - ANESTHESIA Hx Anesthesia: Yes Hx Anesthesia Reactions: No Hx Malignant Hyperthermia: No Meds Allergies/Adverse Reactions: Allergies Allergy/AdvReac Type Severity Reaction Status Date / Time No Known Allergies Allergy Verified 01/17/18 16:21 Physical Exam - Constitutional Appears: No Acute Distress - Head Exam Head Exam: ATRAUMATIC, NORMAL INSPECTION, NORMOCEPHALIC - Eye Exam Eye Exam: EOMI, Normal appearance, PERRL - ENT Exam ENT Exam: Mucous Membranes Moist - Neck Exam Neck exam: Positive for: Full Rom, Normal Inspection - Respiratory Exam Respiratory Exam: Clear to Auscultation Bilateral, NORMAL BREATHING PATTERN. absent: Rales, Rhonchi, Wheezes, Respiratory Distress - Cardiovascular Exam Cardiovascular Exam: REGULAR RHYTHM, +S1, +S2 - GI/Abdominal Exam GI & Abdominal Exam: Normal Bowel Sounds, Soft, Tenderness (b/l lower abdomen with deep palpation). absent: Distended, Firm, Guarding, Mass - Extremities Exam Extremities exam: Positive for: full ROM, normal capillary refill, normal inspection, pedal pulses present. Negative for: pedal edema, tenderness - Neurological Exam Neurological exam: Alert, CN II-XII Intact, Oriented x3, Reflexes Normal - Psychiatric Exam Psychiatric exam: Normal Affect, Normal Mood - Skin Skin Exam: Dry, Intact, Normal Color, Warm Results - Vital Signs Recent Vital Signs: Last Vital Signs Temp 99.3 F 01/17/18 20:20 Pulse 74 01/17/18 20:20 Resp 14 01/17/18 20:20 BP 114/71 01/17/18 20:20 Pulse Ox 97 01/18/18 00:33 - Labs Result Diagrams: 01/18/18 02:27 01/18/18 02:27 Labs: Laboratory Results - last 24 hr 01/17/18 01/17/18 01/17/18 17:25 17:25 17:25 WBC 10.0 D RBC 3.95 Hgb 13.3 Hct 38.9 MCV 98.5 MCH 33.7 H MCHC 34.2 RDW 12.6 Plt Count 312 MPV 7.2 Neut % (Auto) 86.1 H Lymph % (Auto) 7.9 L Grant % (Auto) 4.6 Eos % (Auto) 0.9 Baso % (Auto) 0.5 Neut # (Auto) 8.6 H Lymph # (Auto) 0.8 L Grant # (Auto) 0.5 Eos # (Auto) 0.1 Baso # (Auto) 0.0 Neutrophils % (Manual) 84 H Band Neutrophils % 5 H Lymphocytes % (Manual) 6 L Monocytes % (Manual) 5 Platelet Estimate Normal Large Platelets Present PT 10.9 INR 1.0 APTT 61 H pO2 VBG pH VBG pCO2 VBG HCO3 VBG Total CO2 VBG O2 Sat (Calc) VBG Base Excess VBG Potassium Glucose Lactate Sodium Potassium Chloride Carbon Dioxide Anion Gap BUN Creatinine Est GFR ( Amer) Est GFR (Non-Af Amer) Random Glucose Calcium Magnesium Total Bilirubin Direct Bilirubin AST ALT Alkaline Phosphatase Troponin I Total Protein Albumin Globulin Albumin/Globulin Ratio Lipase Procalcitonin Free T4 TSH 3rd Generation Venous Blood Potassium Urine Color Yellow Urine Clarity Clear Urine pH 6.0 Ur Specific [place] 1.014 Urine Protein Negative Urine Glucose (UA) Normal Urine Ketones Negative Urine Blood Negative Urine Nitrate Negative Urine Bilirubin Negative Urine Urobilinogen Normal Ur Leukocyte Esterase Trace Urine WBC (Auto) < 1 Ur Squamous Epith Cells 1 Urine HCG, Qual Negative Urine Opiates Screen Urine Methadone Screen Ur Barbiturates Screen Ur Phencyclidine Scrn Ur Amphetamines Screen U Benzodiazepines Scrn U Oth Cocaine Metabols U Cannabinoids Screen HIV 1&2 Antibody Screen 01/17/18 01/17/18 01/17/18 17:25 17:25 17:25 WBC RBC Hgb Hct MCV MCH MCHC RDW Plt Count MPV Neut % (Auto) Lymph % (Auto) Grant % (Auto) Eos % (Auto) Baso % (Auto) Neut # (Auto) Lymph # (Auto) Grant # (Auto) Eos # (Auto) Baso # (Auto) Neutrophils % (Manual) Band Neutrophils % Lymphocytes % (Manual) Monocytes % (Manual) Platelet Estimate Large Platelets PT INR APTT pO2 VBG pH VBG pCO2 VBG HCO3 VBG Total CO2 VBG O2 Sat (Calc) VBG Base Excess VBG Potassium Glucose Lactate Sodium 139 Potassium 5.1 Chloride 101 Carbon Dioxide 25 Anion Gap 19 BUN 15 Creatinine 0.7 Est GFR ( Amer) > 60 Est GFR (Non-Af Amer) > 60 Random Glucose 83 Calcium 8.6 8.7 Magnesium 1.6 Total Bilirubin 2.2 H Direct Bilirubin AST 42 H D ALT 10 Alkaline Phosphatase 69 Troponin I < 0.0120 Total Protein 9.2 H Albumin 5.2 H Globulin 4.0 H Albumin/Globulin Ratio 1.3 Lipase Procalcitonin Free T4 1.40 TSH 3rd Generation 0.05 L Venous Blood Potassium Urine Color Urine Clarity Urine pH Ur Specific [place] Urine Protein Urine Glucose (UA) Urine Ketones Urine Blood Urine Nitrate Urine Bilirubin Urine Urobilinogen Ur Leukocyte Esterase Urine WBC (Auto) Ur Squamous Epith Cells Urine HCG, Qual Urine Opiates Screen Urine Methadone Screen Ur Barbiturates Screen Ur Phencyclidine Scrn Ur Amphetamines Screen U Benzodiazepines Scrn U Oth Cocaine Metabols U Cannabinoids Screen HIV 1&2 Antibody Screen 01/17/18 01/17/18 01/17/18 17:25 19:57 19:58 WBC RBC Hgb Hct MCV MCH MCHC RDW Plt Count MPV Neut % (Auto) Lymph % (Auto) Grant % (Auto) Eos % (Auto) Baso % (Auto) Neut # (Auto) Lymph # (Auto) Grant # (Auto) Eos # (Auto) Baso # (Auto) Neutrophils % (Manual) Band Neutrophils % Lymphocytes % (Manual) Monocytes % (Manual) Platelet Estimate Large Platelets PT INR APTT pO2 39 VBG pH 7.41 VBG pCO2 41 VBG HCO3 25.2 VBG Total CO2 27.3 VBG O2 Sat (Calc) 75.9 H VBG Base Excess 1.2 VBG Potassium 3.3 L Glucose 113 H Lactate 1.1 Sodium 140.0 Potassium Chloride 104.0 Carbon Dioxide Anion Gap BUN Creatinine Est GFR ( Amer) Est GFR (Non-Af Amer) Random Glucose Calcium Magnesium Total Bilirubin Direct Bilirubin 1.1 H AST ALT Alkaline Phosphatase Troponin I Total Protein Albumin Globulin Albumin/Globulin Ratio Lipase Procalcitonin Free T4 TSH 3rd Generation Venous Blood Potassium 3.3 L Urine Color Urine Clarity Urine pH Ur Specific [place] Urine Protein Urine Glucose (UA) Urine Ketones Urine Blood Urine Nitrate Urine Bilirubin Urine Urobilinogen Ur Leukocyte Esterase Urine WBC (Auto) Ur Squamous Epith Cells Urine HCG, Qual Urine Opiates Screen Negative Urine Methadone Screen Negative Ur Barbiturates Screen Negative Ur Phencyclidine Scrn Negative Ur Amphetamines Screen Negative U Benzodiazepines Scrn Negative U Oth Cocaine Metabols Negative U Cannabinoids Screen Negative HIV 1&2 Antibody Screen 01/17/18 01/17/18 01/17/18 20:00 20:00 20:00 WBC RBC Hgb Hct MCV MCH MCHC RDW Plt Count MPV Neut % (Auto) Lymph % (Auto) Grant % (Auto) Eos % (Auto) Baso % (Auto) Neut # (Auto) Lymph # (Auto) Grant # (Auto) Eos # (Auto) Baso # (Auto) Neutrophils % (Manual) Band Neutrophils % Lymphocytes % (Manual) Monocytes % (Manual) Platelet Estimate Large Platelets PT INR APTT pO2 VBG pH VBG pCO2 VBG HCO3 VBG Total CO2 VBG O2 Sat (Calc) VBG Base Excess VBG Potassium Glucose Lactate Sodium Potassium Chloride Carbon Dioxide Anion Gap BUN Creatinine Est GFR ( Amer) Est GFR (Non-Af Amer) Random Glucose Calcium Magnesium Total Bilirubin Direct Bilirubin AST ALT Alkaline Phosphatase Troponin I Total Protein Albumin Globulin Albumin/Globulin Ratio Lipase 45 Procalcitonin < 0.05 L Free T4 TSH 3rd Generation Venous Blood Potassium Urine Color Urine Clarity Urine pH Ur Specific [place] Urine Protein Urine Glucose (UA) Urine Ketones Urine Blood Urine Nitrate Urine Bilirubin Urine Urobilinogen Ur Leukocyte Esterase Urine WBC (Auto) Ur Squamous Epith Cells Urine HCG, Qual Urine Opiates Screen Urine Methadone Screen Ur Barbiturates Screen Ur Phencyclidine Scrn Ur Amphetamines Screen U Benzodiazepines Scrn U Oth Cocaine Metabols U Cannabinoids Screen HIV 1&2 Antibody Screen Negative Assessment & Plan - Assessment and Plan (Free Text) Assessment: Thyroid Dysfunction - Hx of Thyroidectomy, Graves, Hashimotos - Symptoms of palpitations, dizziness, sweating, near syncope, vomiting, and diarrhea likely secondary to hyperthyroidism likely secondary to medication. - Patient has been taking Levothyroxine 150mcg PO daily after being advised by PMD to take 137mcg. - Hold Levothyroxine. - Monitor on telemetry - TSH: 0.05L - Free T4: 1.40 - T3: 1.2 L - Free T3: 09/26 - UDS: negative - Troponin x2: negative, f/u#3 - EKG: NSR @ 84bpm; f/u repeat EKGs Consultions, help appreciated: - ICU: Dr Benito Joseph - Mapping Specialist: Dr. Castle Near Syncopal episdode, Dizziness - TSH: 0.05L - Free T4: 1.40 - T3: 1.2 L - Free T3: 09/26 - UDS: negative - Troponin x2: negative, f/u#3 - EKG: NSR @ 84bpm; f/u repeat EKGs - Head CT: limited study due to significant streak and beam hardening artifact arising from multiple earrings partially obscuring brain and bone detail. no acute intracranial hemorrhage or infarct; mild generalized volume loss. - Echo: f/u - Carotid dopplers: f/u Lower abdominal pain - Abdomen/pelvis CT: 5.9x4.7cm cystic denisty at right adnexa which is likley ovarian; free fluid in pelvis vs denisty off the posterior aspect of the uterus. - Abdomen US: negative - Transvaginal US: simple appearing right ovarian cyst measuring 6.2x4.6x4.7cm; anteverted uterus with apparent fibroids measuring 2x1.8x1.2cm; density in the cul de sac, may represent a chronic complex collection with heterogenosity or a echophytic gynecological lesion - LDH: f/u - Lipase: wnl - UA: negative Hx Hypocalcemia - Continue home med: oscal 500mg PO TID Prophylaxis DVT: SCDs, Heparin 5000u SC Q8H GI: not indicated
[2018-01-18 02:42] LABS: BASO % 0.6 % (0.0-2.0); EOS # 0.2 K/uL (0.0-0.7); EOS % 2.3 % (0.0-4.0); HEMOGLOBIN 11.7 g/dL (11.0-16.0); LYMPH # 1.9 K/uL (1.0-4.3); LYMPH % 26.3 % (20.0-40.0); MEAN CELL VOLUME 99.5 fL (81.0-99.0); MEAN CORPUSCULAR HEMOGLOBIN 34.4 pg (27.0-31.0); MEAN CORPUSCULAR HGB CONC 34.5 g/dL (33.0-37.0); MEAN PLATELET VOLUME 7.3 fL (7.2-11.7); MONO # 0.4 K/uL (0.0-0.8); MONO % 5.8 % (0.0-10.0); NEUT # 4.6 K/uL (1.8-7.0); RBC 3.4 Mil/uL (3.80-5.20); RED CELL DISTRIBUTION WIDTH 12.2 % (11.5-14.5); WHITE BLOOD COUNT 7.1 K/uL (4.8-10.8)
[2018-01-18 02:51] LABS: CK-MB 0.55 ng/mL (0.0-3.38)
[2018-01-18 02:54] LABS: ALB/GLOB RATIO 1.2 (1.0-2.1); ALT/SGPT 21 U/L (9-52); AST/SGOT 20 U/L (14-36); BLOOD UREA NITROGEN 11 mg/dL (7-17); CALCIUM 8.2 mg/dl (8.6-10.4); GFR AFRICAN-AMERICAN > 60; GFR NON-AFRICAN AMERICAN > 60
[2018-01-18] MEDS: Dextrose 5%/0.9% NS 1,000 ML IV SCH ×2 (05:27→15:53)
[2018-01-18 08:28] LABS: CK-MB 0.56 ng/mL (0.0-3.38)
[2018-01-18 08:30] LABS: TROPONIN I 0.013 ng/mL (0.00-0.120)
--- NOTE | 2018-01-18 08:44 | CT ---
PROCEDURE: CT Abdomen and Pelvis without intravenous contrast HISTORY: Lower abdominal pain COMPARISON: Ultrasound dated 01/17/2018 TECHNIQUE: Multiple contiguous axial images were performed through the abdomen and pelvis with intravenous contrast. Subsequently, sagittal and coronal reformatted images were obtained. Radiation dose: Total exam DLP = 375 mGy-cm. This CT exam was performed using one or more of the following dose reduction techniques: Automated exposure control, adjustment of the mA and/or kV according to patient size, and/or use of iterative reconstruction technique. FINDINGS: LOWER THORAX: Small hiatal hernia. LIVER: Fatty infiltration of liver. GALLBLADDER AND BILE DUCTS: Prior cholecystectomy. PANCREAS: Unremarkable. No gross lesion or ductal dilatation. SPLEEN: Unremarkable. Splenule. ADRENALS: Unremarkable. No mass. KIDNEYS AND URETERS: Unremarkable. No hydronephrosis. No solid mass. VASCULATURE: Unremarkable. No aortic aneurysm. BOWEL: Diverticulosis. APPENDIX: No evidence for acute appendicitis. PERITONEUM: Unremarkable. No free fluid. No free air. LYMPH NODES: Unremarkable. No enlarged lymph nodes. BLADDER: Unremarkable. REPRODUCTIVE: 5.9 x 4.7 centimeter cystic density identified on the right adnexal region likely ovarian. There may be free fluid the pelvis versus a density on posterior aspect of uterus. BONES: Degenerative changes in the lower lumbar spine most prominent at the L5-S1 level. OTHER FINDINGS: None. IMPRESSION: 5.9 x 4.7 centimeters cystic density identified at the right adnexa which is likely ovarian, suprapelvic sonogram may be helpful for further evaluation. Free fluid in the pelvis versus a density off the posterior aspect of the uterus. Again sonographic confirmation may be helpful. These findings were preliminarily reported at 9:53 p.m. on 01/17/[address] Jeevan Lindo from [facility].
--- NOTE | 2018-01-18 09:45 | US ---
Abdominal ultrasound History: Increased bilirubin levels. Comparison: None available. Technique: Real-time sonography was performed through the abdomen. Findings: Liver: 15.6 centimeters in length. Increased echogenicity of the hepatic parenchymal cortex suggestive for fatty infiltration versus hepatic parenchymal disease. Clinical correlation. Gallbladder: Not well visualized. Contracted and or resected. Common bile duct measures 7 millimeters, mildly prominent. Pancreas not well visualized. Spleen measures 10.5 centimeters in length, within normal limits. Visualized aorta and IVC are preserved. Right kidney: 9.8 x 4.8 x 4.8 centimeters. No calculi or hydronephrosis. Left Kidney: 10.9 x 5.5 x 4.1 centimeters. No calculi or hydronephrosis. Impression: Increased echogenicity of the hepatic parenchymal cortex suggestive for fatty infiltration versus hepatic parenchymal disease. Clinical correlation. Prior cholecystectomy. Limited visualization of the pancreas. Prominent common bile duct measuring 7 millimeters. Clinical correlation. These findings were preliminarily reported at 9:23 p.m. on 01/17/[address] Kelle Brunson from [facility].
--- NOTE | 2018-01-18 10:43 | US ---
HISTORY: right sided cyst COMPARISON: CT scan of the abdomen and pelvis performed approximately 2 hours prior. TECHNIQUE: Grayscale, color Doppler and spectral evaluation the pelvis performed transvaginally FINDINGS: UTERUS: Measures 8.2 x 4.7 x 4.9 cm. Anteverted. Normal in size and appearance. Multi fibroid uterus, with the largest include fundal intramural fibroid measuring 2.0 x 1.8 x 2.2 cm and mid uterine body intramural fibroid measuring 1.7 x 1.7 x 1.9 cm. ENDOMETRIUM: Measures 6 mm in diameter. Unremarkable. CERVIX: No cervical abnormality identified. RIGHT OVARY: Measures 6.9 x 5.2 x 5.5 cm. Large cyst measuring 6.2 x 4.6 x 4.7 cm. Normal flow. LEFT OVARY: Measures 2.4 x 2.0 x 1.5 cm. No solid mass. Normal flow. FREE FLUID: No significant free fluid noted. OTHER FINDINGS: Hypoechoic mass in the cul-de-sac measuring 4.5 x 2.5 x 3.6 cm. IMPRESSION: Multi fibroid uterus. Large right ovarian cyst measuring up to 6.2 cm. Nonspecific heterogeneously hypoechoic masslike structure in the cul-de-sac measuring up to 4.[address] correlate is definitely identified. Contrast-enhanced MRI of the pelvis can be obtained for further evaluation as clinically warranted.
[2018-01-18 12:48] VITALS: RESP 20
[2018-01-18] MEDS ORDERED: Potassium Chloride 20 mEq ER Tab PO ONE (16:00)
--- NOTE | 2018-01-18 16:16 | VASCLAB ---
PROCEDURE: HISTORY: Syncope COMPARISON: None available. TECHNIQUE: Grayscale and duplex Doppler evaluation of the cervical carotid and vertebral arteries were performed. The common carotid, carotid bifurcations and cervical Internal Carotid Artery (ICA) and proximal External Carotid Artery (ECA) were evaluated. The vertebral arteries were evaluated for gross patency and flow direction. Report prepared by MARY ELLEN Rascon FINDINGS: RIGHT CAROTID ARTERIES: 1. Common Carotid Artery: No significant focal plaque formation of the right common carotid artery. Maximum Peak Systolic velocity: 78 cm/sec: End-diastolic velocity 13 cm/sec. 2. Carotid Bifurcation: plaque formation. Maximum Peak Systolic velocity: 35 cm/sec: End-diastolic velocity 14 cm/sec. 3. Internal Carotid Artery: Plaque description: 3.1. Proximal Segment: Peak systolic velocity 64 cm/sec: End-diastolic velocity 26 cm/sec - % stenosis 0-15% 3.2. Middle Segment: Peak systolic velocity 66 cm/sec: End-diastolic velocity 31 cm/sec - % stenosis 0-15% 3.3. Distal Segment: Peak systolic velocity 62 cm/sec: End-diastolic velocity 23 cm/sec - % stenosis 0-15% 4. External Carotid Artery: No significant focal plaque formation. Peak systolic velocity 66 cm/sec 5. ICA/CCA Ratio: 1.1 LEFT CAROTID ARTERIES: 1. Common Carotid Artery: No significant focal plaque formation of the left common carotid artery. Maximum Peak Systolic velocity: 91 cm/sec: End-diastolic velocity 18 cm/sec. 2. Carotid Bifurcation: plaque formation. Maximum Peak Systolic velocity: 57 cm/sec: End-diastolic velocity 11 cm/sec. 3. Internal Carotid Artery: Plaque description: 3.1. Proximal Segment: Peak systolic velocity 61 cm/sec: End-diastolic velocity 31 cm/sec - % stenosis 0-15% 3.2. Middle Segment: Peak systolic velocity 61 cm/sec: End-diastolic velocity 28 cm/sec - % stenosis 0-15% 3.3. Distal Segment: Peak systolic velocity 61 cm/sec: End-diastolic velocity 35 cm/sec - % stenosis 0-15% 4. External Carotid Artery: No significant focal plaque formation. Peak systolic velocity 57 cm/sec 5. ICA/CCA Ratio: 1.0 VERTEBRAL ARTERIES: 1. Right Vertebral Artery: The right vertebral artery flow direction is antegrade. 2. Left Vertebral Artery: The left vertebral artery flow direction is antegrade. OTHER FINDINGS: 1. Right Brachial Blood pressure: 120 mmHg. 2. Left Brachial Blood pressure: 110 mmHg. IMPRESSION: RIGHT: Duplex scan does not suggest hemodynamically significant stenosis of the right extracranial carotid arteries. LEFT: Duplex scan does not suggest hemodynamically significant stenosis of the left extracranial carotid arteries.
--- NOTE | 2018-01-18 19:47 | CARD ---
APPROVED REPORT EKG Measurement Heart [id number] 220P50 [id number] <Conclusion> Sinus rhythm with 1st degree AV block Otherwise normal ECG
--- NOTE | 2018-01-18 21:02 | CARD ---
APPROVED REPORT EXAM: Two-dimensional and M-mode echocardiogram with Doppler and color Doppler. Other Information Quality : GoodRhythm : INDICATION Syncope Palpitations 2D DIMENSIONS IVSd0.7 (0.7-1.1cm)Aortic Root (2D)2.8 (2.0-3.7cm) LVDd4.9 (3.9-5.9cm)PWd0.9 (0.7-1.1cm) LVDs3.0 (2.5-4.0cm)FS (%) 38.9 % LVEF (%)69.1 (>50%) M-Mode DIMENSIONS RVDd2.31 (2.1-3.2cm)Left Atrium (MM)3.54 (2.5-4.0cm) IVSd0.76 (0.7-1.1cm)Aortic Root2.68 (2.2-3.7cm) LVDd5.22 (4.0-5.6cm)Aortic Cusp Exc.2.01 (1.5-2.0cm) PWd0.64 (0.7-1.1cm)FS (%) 46 % LVDs2.82 (2.0-3.8cm)LVEF (%)77 (>50%) Mitral Valve MV E Xtgptqoo62.9cm/sMV A Zyihzovv40.4cm/sE/A ratio1.2 TDI E/Lateral E'0.0E/Medial E'0.0 Tricuspid Valve TR Peak [id number]/sTR Peak Gr.[id number] LEFT VENTRICLE The left ventricle is normal size. There is normal left ventricular wall thickness. The left ventricular function is normal. The left ventricular ejection fraction is within the normal range. 68% No regional wall motion abnormalities noted. The left ventricular diastolic function is normal. No left ventricle thrombus noted on this study. There is no ventricular septal defect visualized. There is no left ventricular aneurysm. There is no mass noted in the left ventricle. RIGHT VENTRICLE The right ventricle is normal size. There is normal right ventricular wall thickness. The right ventricular systolic function is normal. ATRIA The left atrium size is normal. The right atrium size is normal. The interatrial septum is intact with no evidence for an atrial septal defect. AORTIC VALVE The aortic valve is normal in structure and function. Mild aortic regurgitation is present. There is no aortic valvular stenosis. There is no aortic valvular vegetation. MITRAL VALVE The mitral valve is normal in structure and function. There is no evidence of mitral valve prolapse. There is no mitral valve stenosis. There is trace mitral valve regurgitation noted. TRICUSPID VALVE The tricuspid valve is normal in structure and function. There is no tricuspid valve regurgitation noted. There is mild tricuspid valve prolapse or vegetation. There is no tricuspid valve stenosis. PULMONIC VALVE The pulmonary valve is normal in structure and function. There is no pulmonic valvular regurgitation. There is no pulmonic valvular stenosis. GREAT VESSELS The aortic root is normal in size. The ascending aorta is normal in size. The pulmonary artery is normal. The IVC is normal in size and collapses >50% with inspiration. PERICARDIAL EFFUSION The pericardium appears normal. There is no pleural effusion. <Conclusion> Mild aortic regurgitation is present. The left ventricular function is normal.
--- NOTE | 2018-01-18 21:26 | CARD ---
APPROVED REPORT EKG Measurement Heart [id number] NM [id number] <Conclusion> Normal sinus rhythm Normal ECG
--- NOTE | 2018-01-18 22:40 | CP.PCM.PN ---
Subjective - Date & Time of Evaluation Date of Evaluation: 01/18/18 Time of Evaluation: 13:00 - Subjective Subjective: PGY-[address] Mayorga Patient was seen and examined today at bedside in no acute distress. Patient complains of no acute problems. Admits lower abdominal tenderness and pressure that comes and goes, rated 2/10. Denies chest pain, shortness of breath, abdominal pain, nausea, vomiting, constipation, diarrhea. Objective - Vital Signs/Intake and Output Vital Signs (last 24 hours): Temp Pulse Resp BP Pulse Ox 98.1 F 69 20 119/84 97 01/18/18 16:11 01/18/18 20:29 01/18/18 16:11 01/18/18 16:11 01/18/18 20:43 Intake and Output: 01/18/18 01/19/18 18:59 06:59 Intake Total 1600 Balance 1600 - Medications Medications: Current Medications Acetaminophen (Tylenol 325mg Tab) 650 mg PO Q6 PRN PRN Reason: Fever >100.4 F Calcium Carbonate (Oscal) 500 mg PO TID [facility] Last Admin: 01/18/18 18:20 Dose: 500 mg Ergocalciferol (Drisdol 50,000 Intl Units Cap) 1 cap PO Q7D [facility] Heparin Sodium (Porcine) (Heparin) 5,000 units SC Q8 [facility] Last Admin: 01/18/18 21:19 Dose: 5,000 units Dextrose/Sodium Chloride (Dextrose 5%/0.9% Ns 1000 Ml) 1,000 mls @ 100 mls/hr IV .Q10H [facility] Last Admin: 01/18/18 15:53 Dose: 100 mls/hr Levothyroxine Sodium (Synthroid) 125 mcg PO DAILY@0630 [facility] Pneumococcal Polyvalent Vaccine (Pneumovax 23 Vaccine) 0.5 ml IM .ONCE ONE Stop: 01/20/18 10:01 Tramadol HCl (Ultram) 50 mg PO QID PRN PRN Reason: Pain, moderate (4-7) Last Admin: 01/18/18 21:17 Dose: 50 mg - Labs Labs: 01/18/18 02:27 01/18/18 02:27 PT 10.9 SECONDS (9.7-12.2) 01/17/18 17:25 INR 1.0 01/17/18 17:25 APTT 61 SECONDS (21-34) H 01/17/18 17:25 - Constitutional Appears: Well, Non-toxic, No Acute Distress - Head Exam Head Exam: ATRAUMATIC, NORMOCEPHALIC - Eye Exam Eye Exam: EOMI, Normal appearance, PERRL - ENT Exam ENT Exam: Mucous Membranes Moist, Normal Exam - Neck Exam Additional comments: absent thyroid - Respiratory Exam Respiratory Exam: Clear to Ausculation Bilateral, NORMAL BREATHING PATTERN. absent: Rales, Rhonchi, Wheezes - Cardiovascular Exam Cardiovascular Exam: REGULAR RHYTHM, +S1, +S2. absent: Murmur - GI/Abdominal Exam GI & Abdominal Exam: Soft, Tenderness, Normal Bowel Sounds Additional comments: tenderness to palpation on lower abdomen Palpable fibroids - Extremities Exam Extremities Exam: Full ROM, Normal Capillary Refill, Normal Inspection. absent : Joint Swelling, Pedal Edema - Neurological Exam Neurological Exam: Alert, Awake, CN II-XII Intact, Normal Gait, Oriented x3 - Psychiatric Exam Psychiatric exam: Manic, Normal Affect, Normal Mood - Skin Skin Exam: Dry, Intact, Normal Color, Warm Assessment and Plan - Assessment and Plan (Free Text) Plan: Thyroid Dysfunction - Hx of Thyroidectomy, Graves, Hashimotos - Symptoms of palpitations, dizziness, sweating, near syncope, vomiting, and diarrhea likely secondary to hyperthyroidism likely secondary to medication. - Patient has been taking Levothyroxine 150mcg PO daily after being advised by PMD to take 137mcg. - Hold Levothyroxine. - Monitor on telemetry - TSH: 0.05L - Free T4: 1.40 - T3: 1.2 L - Free T3: 09/26 - UDS: negative - Troponin and EKG x3 negative for ACS Consultions, help appreciated: - ICU: Dr Benito Joseph -pending HIV labs - Commercial Collections Driver: Dr. Castle -started on methimazole 10mg po bid. received one dose. stopped methimazole -started on Synthroid 125mcg po daily (starting 01/19) Near Syncopal episdode, Dizziness - TSH: 0.05L - Free T4: 1.40 - T3: 1.2 L - Free T3: 09/26 - UDS: negative - Troponin and EKG x3 negative for ACS - CXR (01/17) no active disease - Head CT (01/17) limited study due to significant streak and beam hardening artifact arising from multiple earrings partially obscuring brain and bone detail. no acute intracranial hemorrhage or infarct; mild generalized volume loss. - Echo (01/18) mild aortic regurg, EF 68% - Carotid dopplers (01/18) negative Lower abdominal pain - Abdomen/pelvis CT: 5.9x4.7cm cystic denisty at right adnexa which is likley ovarian; free fluid in pelvis vs denisty off the posterior aspect of the uterus. - Abdomen US: CMB measures 7mm, mildly prominent - f/u ERCP w/o contrast - Transvaginal US: simple appearing right ovarian cyst measuring 6.2x4.6x4.7cm; anteverted uterus with apparent fibroids measuring 2x1.8x1.2cm; density in the cul de sac, may represent a chronic complex collection with heterogenosity or a echophytic gynecological lesion - LDH: f/u, still pending 01/18 - Lipase: wnl - UA: negative - Tramadol 50mg po qid prn for moderate pain - Can follow up outpatient with FIRMWARE SOFTWARE VERIFICATION ENGINEER (fibroids, ovarian cyst) for MRI with contrast Hx Hypocalcemia - Continue home med: oscal 500mg PO TID - Ca today 8.2 - Start VitD Ergocalciferol 1 cap po q7d Prophylaxis DVT: SCDs, Heparin 5000u SC Q8H GI: not indicated heart healthy diet Cleo Santiago PGY-1. Case discussed with Dr. Mayorga.
[2018-01-18] MEDS ORDERED: Ergocalciferol 50,000 Intl Units Cap PO SCH (23:00)
--- NOTE | 2018-01-18 23:17 | CON ---
DATE: 01/18/2018 ENDOCRINOLOGY CONSULT LOCATION: In room 552. HISTORY OF PRESENT ILLNESS: This is a 47-year-old female with known history of Graves disease and previous thyroidectomy, presenting here with aggressive bouts of dizziness and lightheadedness with near-syncopal episodes and is being referred now for endocrine evaluation and management. PAST MEDICAL HISTORY: As mentioned above, history of Graves disease and even a combination of Fide's thyroiditis and underwent a thyroidectomy procedure in 04/2017. She has since then been given varying doses of levothyroxine by her current geophysics scientist, Dr. Fernández. At this time, she was actually advised to lower her dose from 150 to 137 mcg/dL but is yet to go for the lower dose at this time. History of hypocalcemia, post surgery and currently on calcium and vitamin D supplementation. She has a prior exploratory laparotomy in the mid s after falling out of a window, and as noted, she also had cholecystectomy in 1992 for underlying cholecystitis. FAMILY HISTORY: Positive for diabetes, hypertension, and heart disease. SOCIAL HISTORY: The patient used to smoke for over 15 years but quit over 10 years ago. She also has a prior use of marijuana and cocaine in the past. Drinks alcohol socially at this time. 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 REVIEW OF SYSTEMS: As mentioned above, admits to generalized body weakness with sudden onset of dizziness and lightheadedness with diaphoresis and bifrontal headache. As noted, she also developed sudden onset of near-syncopal episodes worsening to the time of admission. No chest pains or palpitations but admits to episodic shortness of breath, especially on exertion. Her oral intake has been variable with nausea, dyspepsia, and a brief bout of vomiting and subsequent diarrhea today as noted. PHYSICAL EXAMINATION: GENERAL: This is an averagely built female in no apparent distress. VITAL SIGNS: Blood pressure of 140/80, pulse of 90 beats per minute and regular, temperature 98, and respirations 20. Height is 5 feet 3 inches and weight is 140 pounds. HEENT: Head is normocephalic. Eyes are anicteric with pink conjunctivae. Funduscopy not possible at this time. Ears, nose, and throat otherwise normal. NECK: Supple. The scar is healed in the anterior neck area. No palpable masses or cervical adenopathy. HEART: Adynamic precordium. S1 and S2 are rapid and regular. LUNGS: Clear to auscultation. ABDOMEN: Flat and soft with positive bowel sounds. EXTREMITIES: No peripheral edema. Pulses are +2 bilaterally. LABORATORY DATA: Her free T4 is 1.4 with a TSH of 0.05. Chemistries: BUN of 15, sodium 139, potassium 5.1, chloride 101, CO2 of 25, glucose 83, and creatinine 0.7. Her calcium is 8.6. ASSESSMENT: This is a 47-year-old female with a constellation of symptoms with progressive dizziness, lightheadedness, and diaphoresis with supervening near-syncopal episodes. The etiology is yet to be ascertained at this time, although the patient has insisted that this is because of her thyroid condition and is having a possible recurrence of her hyperthyroid condition. She has underlying Graves disease with the prior thyroidectomy as noted with postoperative hypocalcemia, on calcium and vitamin D supplementation as noted. PLAN OF MANAGEMENT: We will initiate only a brief dosing of Tapazole given as 10 mg b.i.d. only for today and then discontinue the above-mentioned and switch her over to a much lower dose of the levothyroxine replacement therapy for outpatient long-term thyroid management. She has been advised to follow with her geophysics scientist Dr. Fernández for ongoing metabolic followup and dose adjustments of her levothyroxine accordingly. She really does not need the Tapazole at this time, but the patient is insisting that because she is hyperthyroid which of course by chemical testing will show the presence of a suppressed TSH indicative of hyperthyroxinemia at this time, but this is clearly medication induced because of the much higher dosing of her levothyroxine replacement therapy as given. So, this is a temporary phenomenon and should improve after levothyroxine is adjusted accordingly on the outpatient. We will obtain thyroid antibodies to include the thyroid stimulating immunoglobulin and thyroglobulin and thyroid peroxidase antibodies accordingly to confirm the presence of underlying thyroid autoimmunity. We will obtain serial thyroid studies and adjust the dose regimen accordingly. Stacey Castle MD
[2018-01-19] MEDS: Dextrose 5%/0.9% NS 1,000 ML IV SCH ×2 (01:15→11:50)
[2018-01-19 08:03] LABS: BASO % 0.9 % (0.0-2.0); EOS # 0.3 K/uL (0.0-0.7); EOS % 5.4 % (0.0-4.0); HEMOGLOBIN 11.6 g/dL (11.0-16.0); LYMPH # 2.3 K/uL (1.0-4.3); LYMPH % 46.5 % (20.0-40.0); MEAN CELL VOLUME 100.2 fL (81.0-99.0); MEAN CORPUSCULAR HEMOGLOBIN 35.1 pg (27.0-31.0); MEAN PLATELET VOLUME 7.6 fL (7.2-11.7); MONO # 0.4 K/uL (0.0-0.8); MONO % 8.5 % (0.0-10.0); NEUT # 1.9 K/uL (1.8-7.0); NEUT % 38.7 % (50.0-75.0); RBC 3.29 Mil/uL (3.80-5.20); RED CELL DISTRIBUTION WIDTH 12.2 % (11.5-14.5)
[2018-01-19 08:17] LABS: ALB/GLOB RATIO 1.4 (1.0-2.1); ALBUMIN 3.8 g/dL (3.5-5.0); ALT/SGPT 34 U/L (9-52); AST/SGOT 21 U/L (14-36); BLOOD UREA NITROGEN 8 mg/dL (7-17); CALCIUM 7.3 mg/dl (8.6-10.4); GFR AFRICAN-AMERICAN > 60; GFR NON-AFRICAN AMERICAN > 60
[2018-01-19 08:36] LABS: T4 8.18 ug/dL (5.5-11.0)
[2018-01-19 16:02] VITALS: BP 135/92; PULSE 71; TEMP 98; O2SAT 99
--- NOTE | 2018-01-19 20:32 | CP.PCM.DIS ---
Provider - Provider Date of Admission: 01/18/18 00:04 Attending physician: Haroldo Mayorga MD Time Spent in preparation of Discharge (in minutes): 60 Hospital Course - Lab Results Lab Results: Micro Results 01/17/18 17:45 Blood Blood Culture - Preliminary NO GROWTH AFTER 24 HOURS 01/17/18 17:00 Blood Blood Culture - Preliminary NO GROWTH AFTER 24 HOURS Most Recent Lab Values WBC 5.0 K/uL (4.8-10.8) 01/19/18 08:04 RBC 3.29 Mil/uL (3.80-5.20) L 01/19/18 08:04 Hgb 11.6 g/dL (11.0-16.0) 01/19/18 08:04 Hct 33.0 % (34.0-47.0) L 01/19/18 08:04 MCV 100.2 fL (81.0-99.0) H 01/19/18 08:04 MCH 35.1 pg (27.0-31.0) H 01/19/18 08:04 MCHC 35.0 g/dL (33.0-37.0) 01/19/18 08:04 RDW 12.2 % (11.5-14.5) 01/19/18 08:04 Plt Count 293 K/uL (130-400) 01/19/18 08:04 MPV 7.6 fL (7.2-11.7) 01/19/18 08:04 Neut % (Auto) 38.7 % (50.0-75.0) L 01/19/18 08:04 Lymph % (Auto) 46.5 % (20.0-40.0) H 01/19/18 08:04 [place] % (Auto) 8.5 % (0.0-10.0) 01/19/18 08:04 Eos % (Auto) 5.4 % (0.0-4.0) H 01/19/18 08:04 Baso % (Auto) 0.9 % (0.0-2.0) 01/19/18 08:04 Neut # (Auto) 1.9 K/uL (1.8-7.0) 01/19/18 08:04 Lymph # (Auto) 2.3 K/uL (1.0-4.3) 01/19/18 08:04 [place] # (Auto) 0.4 K/uL (0.0-0.8) 01/19/18 08:04 Eos # (Auto) 0.3 K/uL (0.0-0.7) 01/19/18 08:04 Baso # (Auto) 0.0 K/uL (0.0-0.2) 01/19/18 08:04 Neutrophils % (Manual) 84 % (50-75) H 01/17/18 17:25 Band Neutrophils % 5 % (0-2) H 01/17/18 17:25 Lymphocytes % (Manual) 6 % (20-40) L 01/17/18 17:25 Monocytes % (Manual) 5 % (0-10) 01/17/18 17:25 Platelet Estimate Normal (NORMAL) 01/17/18 17:25 Large Platelets Present 01/17/18 17:25 PT 10.9 SECONDS (9.7-12.2) 01/17/18 17:25 INR 1.0 01/17/18 17:25 APTT 61 SECONDS (21-34) H 01/17/18 17:25 pO2 39 mm/Hg (30-55) 01/17/18 19:58 VBG pH 7.41 (7.32-7.43) 01/17/18 19:58 VBG pCO2 41 mmHg (40-60) 01/17/18 19:58 VBG HCO3 25.2 mmol/L 01/17/18 19:58 VBG Total CO2 27.3 mmol/L (22-28) 01/17/18 19:58 VBG O2 Sat (Calc) 75.9 % (40-65) H 01/17/18 19:58 VBG Base Excess 1.2 mmol/L (0.0-2.0) 01/17/18 19:58 VBG Potassium 3.3 mmol/L (3.6-5.2) L 01/17/18 19:58 Sodium 140.0 mmol/l (132-148) 01/17/18 19:58 Chloride 104.0 mmol/L (98-107) 01/17/18 19:58 Glucose 113 mg/dl (65-105) H 01/17/18 19:58 Lactate 1.1 mmol/L (0.7-2.1) 01/17/18 19:58 Sodium 140 mmol/L (132-148) 01/19/18 07:50 Potassium 4.0 mmol/L (3.6-5.2) 01/19/18 07:50 Chloride 105 mmol/L (98-107) 01/19/18 07:50 Carbon Dioxide 24 mmol/L (22-30) 01/19/18 07:50 Anion Gap 15 (10-20) 01/19/18 07:50 BUN 8 mg/dL (7-17) 01/19/18 07:50 Creatinine 0.7 mg/dL (0.7-1.2) 01/19/18 07:50 Est GFR ( Amer) > 60 01/19/18 07:50 Est GFR (Non-Af Amer) > 60 01/19/18 07:50 Random Glucose 94 mg/dL (65-105) 01/19/18 07:50 Calcium 7.3 mg/dl (8.6-10.4) L 01/19/18 07:50 Phosphorus 4.3 mg/dL (2.5-4.5) 01/19/18 07:50 Magnesium 1.7 mg/dL (1.6-2.3) 01/19/18 07:50 Total Bilirubin 0.8 mg/dL (0.2-1.3) 01/19/18 07:50 Direct Bilirubin 1.1 mg/dL (0.0-0.4) H 01/17/18 17:25 AST 21 U/L (14-36) 01/19/18 07:50 ALT 34 U/L (9-52) 01/19/18 07:50 Alkaline Phosphatase 81 U/L (38-126) 01/19/18 07:50 Total Creatine Kinase 111 U/L (30-135) 01/18/18 07:52 CK-MB (Mass) 0.56 ng/mL (0.0-3.38) 01/18/18 07:52 Troponin I 0.0130 ng/mL (0.00-0.120) 01/18/18 07:52 Total Protein 6.6 g/dL (6.3-8.3) 01/19/18 07:50 Albumin 3.8 g/dL (3.5-5.0) 01/19/18 07:50 Globulin 2.8 gm/dL (2.2-3.9) 01/19/18 07:50 Albumin/Globulin Ratio 1.4 (1.0-2.1) 01/19/18 07:50 Lipase 45 U/L (23-300) 01/17/18 20:00 Procalcitonin < 0.05 NG/ML (0.19-0.49) L 01/17/18 20:00 Free T4 1.50 ng/dL (0.78-2.19) 01/19/18 07:50 Thyroxine (T4) 8.18 ug/dL (5.5-11.0) 01/19/18 07:50 Free T3 pg/mL 3.17 pg/mL (2.77-5.27) 01/18/18 02:27 Total T3 1.20 nmol/L (1.49-2.60) L 01/18/18 02:27 TSH 3rd Generation 0.13 mIU/L (0.46-4.68) L 01/19/18 07:50 Cortisol AM Sample 15.8 ug/dL (4.46-22.7) 01/19/18 07:50 Venous Blood Potassium 3.3 mmol/L (3.6-5.2) L 01/17/18 19:58 Urine Color Yellow (YELLOW) 01/17/18 17:25 Urine Clarity Clear (Clear) 01/17/18 17:25 Urine pH 6.0 (5.0-8.0) 01/17/18 17:25 Ur Specific [place] 1.014 (1.003-1.030) 01/17/18 17:25 Urine Protein Negative mg/dL (NEGATIVE) 01/17/18 17:25 Urine Glucose (UA) Normal mg/dL (Normal) 01/17/18 17:25 Urine Ketones Negative mg/dL (NEGATIVE) 01/17/18 17:25 Urine Blood Negative (NEGATIVE) 01/17/18 17:25 Urine Nitrate Negative (NEGATIVE) 01/17/18 17:25 Urine Bilirubin Negative (NEGATIVE) 01/17/18 17:25 Urine Urobilinogen Normal mg/dL (0.2-1.0) 01/17/18 17:25 Ur Leukocyte Esterase Trace [place]/uL (Negative) 01/17/18 17:25 Urine WBC (Auto) < 1 /hpf (0-5) 01/17/18 17:25 Ur Squamous Epith Cells 1 /hpf (0-5) 01/17/18 17:25 Urine HCG, Qual Negative (NEGATIVE) 01/17/18 17:25 Urine Opiates Screen Negative (NEGATIVE) 01/17/18 19:57 Urine Methadone Screen Negative (NEGATIVE) 01/17/18 19:57 Ur Barbiturates Screen Negative (NEGATIVE) 01/17/18 19:57 Ur Phencyclidine Scrn Negative (NEGATIVE) 01/17/18 19:57 Ur Amphetamines Screen Negative (NEGATIVE) 01/17/18 19:57 U Benzodiazepines Scrn Negative (NEGATIVE) 01/17/18 19:57 U Oth Cocaine Metabols Negative (NEGATIVE) 01/17/18 19:57 U Cannabinoids Screen Negative (NEGATIVE) 01/17/18 19:57 HIV 1&2 Antibody Screen Negative (NEGATIVE) 01/17/18 20:00 - Hospital Course Hospital Course: Patient is a 47 year old female with a history of graves, hashimotos, thyroidectomy, and hypocalcemia, who presents to the ED with complaints of near syncope, dizziness, diaphoresis, vomiting, and diarrhea. She was at [facility] today and had a sudden onset of dizziness, diaphoresis, and felt as though she was going to faint. She then ran to the restroom, vomited and had diarrhea. She had a similar episode one week ago on Thursday, and in addition to those symptoms , had a severe migraine with photophobia and sensitivity to sound. She attributes her symptoms to possibly eat fish at a restaurant, [employer], on Thursday , and then today, eating a hamburger at [facility]. She also notes that recently, she had her labs drawn with her anglesmith, who told her she needs to take levothyroxine 137mcg daily instead of 150mcg. Patient states she did not receive a new prescription for the 137mcg, so she has continued the 150mcg daily. She admits having the following symptoms intermittently for the past week - fevers, chills, nausea, vomiting (non-bloody), diarrhea (non-bloody), abdominal pain, diaphoresis, palpitations, flushing, muscle twitching, and numbness and tingling in her hands and feet. Patient denies chest pain, shortness of breath, cough, change in vision/hearing, sore throat, lower extremity pain/ swelling, dysuria, hematuria. PMD: Dr. Morgan Drum Barker Operator: Dr. Lopez PMHx: graves ("from exposure to toxic mold at the [place]"), hashimotos, thyroidectomy, hypocalcemia, fibroids SurgHx: Thyroidectomy 04/2017; Cholecystectomy 1992, Ex lap after falling out of a window 1982 FamHx: Brother- DM, Sister- [place], Aunt- Heart disease SocHx: 07/16ppd x15 years; quit 17 years ago. denies recent/current drug use (has used cocaine, marijuana in the past); drinks 1-3 glasses of wine daily; travels frequently, otherwise lives with girlfriend, Micaela Ching ([phone]), in [place]. 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 Allergies: NKDA Medications: levothyroxine 150mcg po daily. Patient came to [facility] complaining of weakness, near syncope, abdominal pain. CXR and EKG were negative for cardiac causes. Head CT shows old fracture and negative for hemorrhage. Carotid Doppler study negative, Echo shows mild aortic regurg and EF 68%. Abdominal/Pelvis CT, confirmed with abdominal US and transvaginal US showed known history of fibroids (largest 2.0x1.8x2.2cm), simple ovarian cyst (6.2x4.6x4.7). There was also a hypoechoic mass in the cul- de-sac measuring 4.5x2.5x3.6cm. Contrast enhanced MRI was clinically warranted, however patient unable to tolerate enclosure of MRI. Repeat attempt with mild sedation, patient still couldn't tolerate. Can followup outpatient in open MRI. TSH was 0.05 on admission, total T3 1.20 (low), free T3 3.17, T4 8.18, free T4 1.40. Synthroid was held. In light of total thyroidectomy, methimazole switched to lower dose of home Synthroid. TSH improved to 0.13 on day of discharge. Her history of hypocalcemia was repleted as necessary during her stay. Primary Diagnoses: Thyrotoxicosis, hypocalcemia. Hx fibroids, ovarian cyst. Patient stable for discharge per Dr. Mayorga. Patient should stop taking the Synthroid 150mcg and switch to Synthroid 125mcg by mouth daily. We are also starting Vitamin D (Ergocalciferol) 1 capsule by mouth once a week. Patient should take these medications as prescribed. Patient should also make an appointment to follow up with Dr. Morgan (PMD), Dr. Lopez or Dr. Castle ( endocrine), and Dr. Aragon (OBGYN) concerning this hospitalization within one week. Patient should return to the ED immediately if symptoms return or wrosen. Instruction discussed with patient who understood and agreed. - Date & Time of H&P Date of H&P: 01/19/18 Time of H&P: 14:00 Discharge Exam - Head Exam Head Exam: ATRAUMATIC, NORMOCEPHALIC - Eye Exam Eye Exam: EOMI, Normal appearance, PERRL - ENT Exam ENT Exam: Mucous Membranes Moist, Normal Exam Additional comments: absent thyroid - Respiratory Exam Respiratory Exam: Clear to PA & Lateral, NORMAL BREATHING PATTERN, UNREMARKABLE. absent: Rales, Rhonchi, Wheezes - Cardiovascular Exam Cardiovascular Exam: REGULAR RHYTHM, RRR, +S1, +S2. absent: Bradycardia, Tachycardia, Systolic Murmur - GI/Abdominal Exam GI & Abdominal Exam: Normal Bowel Sounds, Soft Additional comments: tenderness to palpation on lower abdomen palpable fibroids - Extremities Exam Extremities exam: full ROM Additional comments: no joint pain, no tenderness - Neurological Exam Neurological exam: Alert, CN II-XII Intact, Normal Gait, Oriented x3, Reflexes Normal - Psychiatric Exam Psychiatric exam: Normal Affect, Normal Mood - Skin Skin Exam: Dry, Intact, Normal Color, Warm Discharge Plan - Discharge Medications Prescriptions: Ergocalciferol [Drisdol 50,000 Intl Units Cap] 1 cap PO Q7D #4 cap Levothyroxine [Synthroid] 125 mcg PO DAILY@0630 #14 tab - Follow Up Plan Condition: FAIR Disposition: HOME/ ROUTINE Instructions: Hyperthyroidism (Overactive Thyroid), Ergocalciferol, Levothyroxine Additional Instructions: Patient stable for discharge per Dr. Mayorga. Patient should stop taking the Synthroid 150mcg and switch to Synthroid 125mcg by mouth daily. We are also starting Vitamin D (Ergocalciferol) 1 capsule by mouth once a week. Patient should take these medications as prescribed. Patient should also make an appointment to follow up with Dr. Morgan (PMD), Dr. Lopez or Dr. Castle ( endocrine), and Dr. Aragon (OBGYN) concerning this hospitalization within one week. Patient should return to the ED immediately if symptoms return or wrosen. Instruction discussed with patient who understood and agreed. Referrals: Stacey Castle MD [Medical Doctor] -
--- NOTE | 2018-01-19 21:06 | PN ---
DATE: 01/19/2018 ENDO FOLLOWUP NOTE LOCATION: In room #552 . SUBJECTIVE: This is a 47-year-old female with recent admission for a sudden syncopal episode and preceded with severe bouts of dizziness, lightheadedness, near-syncopal sensation, and was evaluated to have a suppressed TSH, indicative of the so called euthyroid hyperthyroxinemia. She remains clinically euthyroid, however, at this time, but remains hyperadrenergic, which is really also her baseline personality but has been accelerated by the thyroid over-replacement. Her chemistries showed a BUN of 8, sodium 140, potassium 4.0, chloride 105, CO2 24, glucose 94, and creatinine 0.7. The repeat thyroid studies show T4 of 8.18 with a free T4 of 1.50 and a TSH of 0.13, which is still suppressed as expected. The cortisol level is 16.8 at this time. ASSESSMENT: This is a 47-year-old female with significant history of Graves disease and surgical hypothyroidism from a previous thyroidectomy undertaken thereof. She remains clinically euthyroid at this time but biochemically has the so called euthyroid hyperthyroxinemia related to the levothyroxine over-replacement therapy. This may also be a contributing factor to her recent dizziness, lightheadedness, and syncopal episode as noted and mentioned. PLAN OF MANAGEMENT: We actually gave her a small dose of Tapazole for one day only to alleviate the hyperadrenergic symptoms and then we will switch her back over to levothyroxine replacement therapy at a much lower dosing regimen. However, it takes 5 to 7 days for the washout of the medication from her system. So, since her last dosing of the levothyroxine 150 mcg was last Thursday, then we will have to resume much lower dosing of 125 mcg by this coming Thursday. This was explained in detail to the patient, and she understands the implications of close medical and laboratory testing on the outpatient. She will follow with her tobacco checkout clerk, Dr. Fernández in [place] for ongoing thyroid followup and management. We will follow. Stacey Castle MD
[2018-01-20] MEDS ORDERED: Levothyroxine 125 MCG TAB PO SCH (06:30)
[2018-01-20] MEDS ORDERED: Pneumococcal 23-Valent Vaccine IM ONE (10:00)
[2018-01-20 21:01] LABS: THYROGLOBULIN 0.2 ng/mL (2.8-40.9)
== END 2018-01-19 21:25 | disposition home or self-care (01) | DRG 369 ==
LOC: C.ER 16:02 → C.9E 01-18 00:04 → C.5S 01-18 10:34
PROVIDERS: ADMIT Internal Medicine; ATTEND Internal Medicine
DX: N83.201 Unspecified ovarian cyst, right side (principal); E05.00 Thyrotoxicosis with diffuse goiter without thyrotoxic crisis or storm; E89.0 Postprocedural hypothyroidism; R55 Syncope and collapse; T38.1X5A Adverse effect of thyroid hormones and substitutes, initial encounter; N85.4 Malposition of uterus; E83.51 Hypocalcemia; G43.809 Other migraine, not intractable, without status migrainosus

== ENCOUNTER 2018-07-06 08:59 | Emergency (ER) | payer OTHER ==
[2018-07-06 09:00] VITALS: BMI 26.5
[2018-07-06] MEDS ORDERED: Sodium Chloride 0.9% 1,000 ML IV STA (10:02)
[2018-07-06 10:17] LABS: BASO # 0.1 K/uL (0.0-0.2); BASO % 1.1 % (0.0-2.0); EOS # 0.2 K/uL (0.0-0.7); EOS % 2.3 % (0.0-4.0); HEMOGLOBIN 13.1 g/dL (11.0-16.0); LYMPH # 1.6 K/uL (1.0-4.3); LYMPH % 22.9 % (20.0-40.0); MEAN CELL VOLUME 101.1 fL (81.0-99.0); MEAN CORPUSCULAR HEMOGLOBIN 35.3 pg (27.0-31.0); MEAN CORPUSCULAR HGB CONC 34.9 g/dL (33.0-37.0); MONO # 0.4 K/uL (0.0-0.8); MONO % 5.9 % (0.0-10.0); NEUT # 4.6 K/uL (1.8-7.0); NEUT % 67.8 % (50.0-75.0); RBC 3.72 Mil/uL (3.80-5.20); WHITE BLOOD COUNT 6.8 K/uL (4.8-10.8)
[2018-07-06] MEDS ORDERED: Sodium Chloride 0.9% 1,000 ML ONE (10:18)
[2018-07-06 10:29] LABS: ALB/GLOB RATIO 1.3 (1.0-2.1); ALBUMIN 4.5 g/dL (3.5-5.0); ALT/SGPT 25 U/L (9-52); AST/SGOT 42 U/L (14-36); BLOOD UREA NITROGEN 16 mg/dL (7-17); CALCIUM 7.3 mg/dl (8.6-10.4); GFR NON-AFRICAN AMERICAN > 60; LIPASE 37 U/L (23-300)
--- NOTE | 2018-07-06 11:03 | C.PDOC ---
History Of Present Illness 48 years old female presents to ED for complaints of suprapubic area and RLQ abdominal pain associated with nausea that began few months ago. Patient states pain is intermittent and worsened yesterday which prompted the ED visit. Denies vomiting, diarrhea, or any other complaints. Time Seen by Provider: 07/06/18 09:27 Chief Complaint (Nursing): Abdominal Pain History Per: Patient History/Exam Limitations: no limitations Onset/Duration Of Symptoms: Hrs Current Symptoms Are (Timing): Still Present Location Of Pain/Discomfort: RLQ, Suprapubic Radiation Of Pain To:: None Quality Of Discomfort: "Pain" Associated Symptoms: Nausea. denies: Fever, Chills, Vomiting, Diarrhea Exacerbating Factors: None Alleviating Factors: None Last Bowel Movement: Today Recent travel outside of the [place]: No Abnormal Vaginal Bleeding: No Past Medical History Reviewed: Historical Data, Nursing Documentation, Vital Signs Vital Signs: Last Vital Signs Temp 97.5 F L 07/06/18 09:06 Pulse 73 07/06/18 09:06 Resp 18 07/06/18 09:06 BP 129/90 07/06/18 09:06 Pulse Ox 99 07/06/18 09:06 - Medical History PMH: Anxiety, Gall Bladder Disease, Graves' Disease, Hyperthyroidism, Hypothyroidism Surgical History: Back Surgery, Cholecystectomy, Endoscopy - [facility] Procedures EXCISION OF NECK SKIN, EXTERNAL APPROACH (04/22/17) RESECTION OF THYROID GLAND, OPEN APPROACH (04/22/17) Family History: States: No Known Family Hx - Social History Hx Alcohol Use: Yes Hx Substance Use: No - Immunization History Hx Tetanus Toxoid Vaccination: No Hx Influenza Vaccination: No Hx Pneumococcal Vaccination: No Review Of Systems Constitutional: Negative for: Fever, Chills Gastrointestinal: Positive for: Nausea, Abdominal Pain. Negative for: Vomiting, Diarrhea, Constipation Genitourinary: Negative for: Dysuria Skin: Negative for: Rash Neurological: Negative for: Weakness, Numbness Physical Exam - Physical Exam Appears: Non-toxic, No Acute Distress Skin: Normal Color, Warm, Dry, No Rash Head: Atraumatic, Normacephalic Eye(s): bilateral: Normal Inspection, PERRL, EOMI Oral Mucosa: Moist Neck: Normal ROM, Supple Chest: Symmetrical, No Tenderness Cardiovascular: Rhythm Regular, No Murmur Respiratory: Normal Breath Sounds, No Rales, No Rhonchi, No Wheezing Gastrointestinal/Abdominal: Bowel Sounds (Active ), Soft, Tenderness (Suprapubic area ) Extremity: Normal ROM Extremity: Bilateral: Atraumatic, Normal Color And Temperature, Normal ROM Pulses: Left Radial: Normal, Right Radial: Normal Neurological/Psych: Oriented x3, Normal Speech Gait: Steady ED Course And Treatment - Laboratory Results Result Diagrams: 07/06/18 10:14 07/06/18 10:14 O2 Sat by Pulse Oximetry: 99 (RA) Pulse Ox Interpretation: Normal - CT Scan/US Abdomen/Pelvis/Transvaginal US Other Rad Studies (CT/US): Read By Radiologist, Radiology Report Reviewed CT/US Interpretation: Date of service: 07/06/2018. HISTORY: pelvic pain. COMPARISON: Transvaginal pelvic ultrasound 01/17/2018. TECHNIQUE: Transabdominal and transvaginal pelvic ultrasound was performed with longitudinal and transverse images submitted for interpretation. FINDINGS: UTERUS: Measures 9.5 x 5.5 x 5.4 cm. There has been a slight further increase in size in the uterus with 3 fibroids identified. At the mid fundus anteriorly is intramural isoechoic fibroid with posterior acoustic enhancement and occasional central hyperintensities measuring 1.4 x 1.5 x 1.7 cm, slightly smaller in the interval previously measuring 2.0 x 1.8 x 2.2 cm. A tiny sub serosal mid fundal fibroid is identified in the interval at the lateral mid fundus. Finally, a high posterior fundal fibroid essentially isoechoic and sub serosal in location possibly comparing to prior fibroid measuring 1.7 x 1.7 x 1.9 cm. ENDOMETRIUM: Measures 6.2 mm in diameter. Unremarkable. CERVIX: No cervical abnormality identified. RIGHT OVARY: Measures 7.5 x 5.4 x 7.4 cm cm. No solid mass. Normal flow. However, its overall size remains enlarged and has increased due to a simple cyst now measuring 5.9 x 5.4 x 5.2 cm, previously measuring 6.2 x 4.6 x 4.7 cm. No new right adnexal finding. LEFT OVARY: Measures 3.5 x 2.1 x 3.5 cm. No solid mass. Normal flow. A minimally complex left ovarian cyst measures 1.4 x 1.2 x 2.0 cm with solitary to septation identified. FREE FLUID: A fluid collection in the cul-de-sac persists versus potential soft tissue lesion measuring 5.9 x 3.0 x 5.1 cm compared to 4.5 x 2.5 x 3.6 cm previously. The finding remains avascular on color Doppler ultrasound and may reflect complex fluid. OTHER FINDINGS: None. IMPRESSION: 1. Increasing moderately large simple cyst enlarging the right ovary once again. No solid right adnexal mass. No evidence to suggest ovarian torsion bilaterally. 2. Persistent cul-de-sac complex fluid collection or potential soft tissue lesion now measuring 5.9 x 5.4 x 5.2 cm. 3. Fibroid uterine changes have increased with mild increase in size of the uterus noted overall. Progress Note: Administerd IV FLuids. Ordered blood work, urinalysis, and Pelvis US. On re-evaluation patient feels better and is stable to be d/c home with PMD and OBGYN follow up. Disposition - Disposition Disposition: HOME/ ROUTINE Disposition Time: 15:56 Condition: STABLE Additional Instructions: Follow up with PMD and OBGYN within 1-2 days. Return to ED if feel worse. Prescriptions: Naproxen [Naprosyn] 1 tab PO BID PRN #25 tab PRN Reason: Pain Instructions: Chronic Pelvic Pain in Women, Uterine Fibroids, Ovarian Cysts Forms: [employer] ([place]rainian) - Clinical Impression Clinical Impression: Pelvic pain, Ovarian cyst, Uterine fibroid - PA / CASING BLOWER / Resident Statement MD/DO has reviewed & agrees with the documentation as recorded. - Scribe Statement The provider has reviewed the documentation as recorded by the Juan Carlosibjesusita Sahu All medical record entries made by the Juan Carlosibjesusita were at my direction and personally dictated by me. I have reviewed the chart and agree that the record accurately reflects my personal performance of the history, physical exam, medical decision making, and the department course for this patient. I have also personally directed, reviewed, and agree with the discharge instructions and disposition.
[2018-07-06 11:54] LABS: SQUAMOUS EPITHIAL 8 /hpf (0-5); URINE BACTERIA RARE (<OCC); URINE BILIRUBIN NEGATIVE (NEGATIVE); URINE BLOOD NEGATIVE (NEGATIVE); URINE CLARITY Clear (Clear); URINE COLOR Yellow (YELLOW); URINE GLUCOSE (UA) NORMAL (Normal); URINE LEUKOCYTE ESTERASE NEG Leu/uL (Negative); URINE PROTEIN NEGATIVE (NEGATIVE); URINE UROBILINOGEN NORMAL mg/dL (0.2-1.0)
[2018-07-06 12:00] LABS: HCG,QUALITATIVE URINE NEGATIVE (NEGATIVE)
[2018-07-06 12:51] VITALS: RESP 17
--- NOTE | 2018-07-06 14:49 | US ---
Date of service: 07/06/2018 HISTORY: pelvic pain COMPARISON: Transvaginal pelvic ultrasound 01/17/2018. TECHNIQUE: Transabdominal and transvaginal pelvic ultrasound was performed with longitudinal and transverse images submitted for interpretation. FINDINGS: UTERUS: Measures 9.5 x 5.5 x 5.4 cm. There has been a slight further increase in size in the uterus with 3 fibroids identified. At the mid fundus anteriorly is intramural isoechoic fibroid with posterior acoustic enhancement and occasional central hyperintensities measuring 1.4 x 1.5 x 1.7 cm, slightly smaller in the interval previously measuring 2.0 x 1.8 x 2.2 cm. A tiny sub serosal mid fundal fibroid is identified in the interval at the lateral mid fundus. Finally, a high posterior fundal fibroid essentially isoechoic and sub serosal in location possibly comparing to prior fibroid measuring 1.7 x 1.7 x 1.9 cm. ENDOMETRIUM: Measures 6.2 mm in diameter. Unremarkable. CERVIX: No cervical abnormality identified. RIGHT OVARY: Measures 7.5 x 5.4 x 7.4 cm cm. No solid mass. Normal flow. However, its overall size remains enlarged and has increased due to a simple cyst now measuring 5.9 x 5.4 x 5.2 cm, previously measuring 6.2 x 4.6 x 4.7 cm. No new right adnexal finding. LEFT OVARY: Measures 3.5 x 2.1 x 3.5 cm. No solid mass. Normal flow. A minimally complex left ovarian cyst measures 1.4 x 1.2 x 2.0 cm with solitary to septation identified. FREE FLUID: A fluid collection in the cul-de-sac persists versus potential soft tissue lesion measuring 5.9 x 3.0 x 5.1 cm compared to 4.5 x 2.5 x 3.6 cm previously. The finding remains avascular on color Doppler ultrasound and may reflect complex fluid. OTHER FINDINGS: None. IMPRESSION: 1. Increasing moderately large simple cyst enlarging the right ovary once again. No solid right adnexal mass. No evidence to suggest ovarian torsion bilaterally. 2. Persistent cul-de-sac complex fluid collection or potential soft tissue lesion now measuring 5.9 x 5.4 x 5.2 cm. 3. Fibroid uterine changes have increased with mild increase in size of the uterus noted overall.
[2018-07-06 16:17] VITALS: BP 108/72; PULSE 69; TEMP 97.9
[2018-07-06 17:48] VITALS: O2SAT 99
== END 2018-07-06 16:25 | disposition home or self-care (01) ==
LOC: C.ER 08:59
DX: D25.9 Leiomyoma of uterus, unspecified (principal); N83.202 Unspecified ovarian cyst, left side; R10.2 Pelvic and perineal pain
CPT/HCPCS: 76830; 76856; 80053; 81001; 83690; 84703; 85025; 96374; 96375; 99285; J1885; J2270; J2405; J7030

== ENCOUNTER 2018-11-22 10:47 | Outpatient (CLI) | payer OTHER | END 2018-11-22 10:48 | disposition home or self-care (01) | LOC: C.USIC 10:47 ==